=== PATIENT | female | born 1970 | race Caucasian/White ===

== ENCOUNTER 2017-12-22 10:44 | Day surgery (SDC) | payer OTHER ==
[~2017-12-22 10:44] MED LIST: PROPOFOL INJ 200 MG/20 ML VIAL IV ONE
[2017-12-22 13:10] VITALS: BP 112/59
--- NOTE | 2017-12-22 15:46 | Operative Report ---
Operative Report DATE OF SURGERY: 12/22/17 Operative Report: The risks, benefits and alternatives of the procedure including risks of bleeding, perforation requiring surgery are explained to the patient in detail and informed consent is obtained. The patient is brought to the endoscopy suite and placed in the left, lateral decubital position. Timeout was called. Propofol medications administered. A rectal exam was done which did not reveal any masses, tears or fissures. An Olympus videoscope was inserted into the patient's rectum. The scope was then carefully advanced all the way to the cecum. The cecum was identified by the usual anatomical landmarks including the ileocecal valve as well as appendiceal office. Photodocumentation is obtained. Prep is reasonably good. The scope was then sequentially pulled back via the various segments of the colon including the ascending colon, hepatic flexure, transverse colon, splenic flexure, descending colon finding to the rectosigmoid portions of the colon. Retroflexion maneuvers performed. The risks benefits and alternatives of the procedure explained to the patient in detail and informed consent is obtained.A GIF Olympus video scope was inserted into the patient's mouth and hypopharynx, the esophagus is identified intubated and insufflated, the scope was then advanced through the esophagus stomach and duodenum, retroflexion maneuver is done, the esophagus stomach and first and second portions of the duodenum examined PREOPERATIVE DIAGNOSIS: Blood in stool. Change of bowel habits. Epigastric pain rule out peptic ulcer disease POSTOPERATIVE DIAGNOSIS: Lipoma noted in the colon status post biopsy for confirmation. 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 Right side colon biopsy status post biopsy rule out lymphocytic, microscopic, collagenous colitis. Internal hemorrhoids. Gastritis status post biopsy rule out Helicobacter pylori OPERATION: Colonoscopy with biopsy. EGD with biopsy SURGEON: ARIANA MCKEON ANESTHESIA: LMAC TISSUE REMOVED OR ALTERED: As noted above. COMPLICATIONS: None. ESTIMATED BLOOD LOSS: None. INTRAOPERATIVE FINDINGS: As noted above. PROCEDURE: Patient tolerated procedure well. No immediate postprocedure complications are noted. Patient discharged in good condition. Discharge date 12/22/2017. Discharge diet: Regular. Discharge activity: Regular. 2-3 week follow-up to discuss findings. Patient is instructed call the office or proceed to the emergency room should there be any further problems or questions. We will wait and pathology.
== END 2017-12-22 13:10 | disposition home or self-care (01) ==
LOC: END 10:44
PROVIDERS: ATTEND Internal Medicine Gastroenterology
PROC: 0DB68ZX Excision of Stomach, Via Natural or Artificial Opening Endoscopic, Diagnostic (ICD-10-PCS; principal; 2017-12-22 14:00)
PROC: 0DBE8ZX Excision of Large Intestine, Via Natural or Artificial Opening Endoscopic, Diagnostic (ICD-10-PCS; 2017-12-22 14:00)
DX: K63.89 Other specified diseases of intestine (principal); R19.4 Change in bowel habit; R10.13 Epigastric pain; K92.1 Melena; K64.8 Other hemorrhoids; Z79.899 Other long term (current) drug therapy
CPT/HCPCS: 43239; 45380; 88305 ×2; J2704; 813

== ENCOUNTER 2019-05-10 07:32 | Day surgery (SDC) | payer OTHER ==
[2019-05-10 09:13] LABS: INTERNATIONAL RATION (INR) 0.95; PROTHROMBIN TIME 12.6 SEC (11.4-15.4)
[2019-05-10 09:14] LABS: PARTIAL THROMBOPLASTIN TIME 23.6 SEC (23.5-35.8)
[2019-05-10] MEDS ORDERED: PROPOFOL INJ 200 MG/20 ML VIAL IV ONE (10:00)
[2019-05-10] MEDS ORDERED: LIDOCAINE 2% INJ (20 MG/ML) 20 ML MDV ONE (10:01)
--- NOTE | 2019-05-10 10:38 | Operative Report ---
Operative Report DATE OF SURGERY: 05/10/19 Operative Report: The risks, benefits and alternatives of the procedure including the risk of bleeding, perforation requiring surgery have been explained to the patient in detail and informed consent has been obtained. Patient is taken to the operating room and placed in the left, lateral decubital position. Timeout was called. Propofol medication is administered. Rectal examination is done which did not reveal any masses, tears or fissures. An Olympus videoscope was introduced into the patient's rectum. The scope was then carefully advanced all the way to the cecum. The cecum was identified by the usual anatomical landmarks including the ileocecal valve as well as the appendiceal office. Photodocumentation is obtained. The scope was then sequentially pulled back via the various segments of the colon including the ascending colon, hepatic flexure, transverse colon, splenic flexure, descending colon and finally to the rectosigmoid portions of the colon. Retroflexion maneuvers performed. PREOPERATIVE DIAGNOSIS: Previous history of diverticulitis for reevaluation POSTOPERATIVE DIAGNOSIS: Diverticulosis without any evidence of diverticulitis mainly in the sigmoid colon. Melanosis coli. Right side colon Inflammation status post biopsy rule out lymphocytic colitis OPERATION: Colonoscopy with biopsy SURGEON: ARIANA MCKEON ANESTHESIA: LMAC TISSUE REMOVED OR ALTERED: As noted above. COMPLICATIONS: None. ESTIMATED BLOOD LOSS: None. INTRAOPERATIVE FINDINGS: As noted above. PROCEDURE: Patient tolerated the procedure well. No immediate postprocedure complications are noted. Patient is discharged in good condition. Discharge date 05/10/2019. Discharge diet: Regular. Discharge activity: Regular. 2 to 3-week follow-up to discuss findings. Patient is instructed to call the office or proceed to the emergency room should there be any further problems or questions. Wait on the pathology.
[2019-05-10 11:33] VITALS: BP 101/65
== END 2019-05-10 11:30 | disposition home or self-care (01) ==
LOC: OROUT 07:32
PROVIDERS: ATTEND Internal Medicine Gastroenterology
DX: K57.30 Diverticulosis of large intestine without perforation or abscess without bleeding (principal); K63.89 Other specified diseases of intestine; K52.9 Noninfective gastroenteritis and colitis, unspecified; Z09 Encounter for follow-up examination after completed treatment for conditions other than malignant neoplasm; Z87.19 Personal history of other diseases of the digestive system; Z87.11 Personal history of peptic ulcer disease; I10 Essential (primary) hypertension; I25.10 Atherosclerotic heart disease of native coronary artery without angina pectoris; F17.210 Nicotine dependence, cigarettes, uncomplicated; Z79.01 Long term (current) use of anticoagulants
CPT/HCPCS: 45380; 36415; 84132; 85610; 85730; 88305 ×2; J3490; J2704; 811

== ENCOUNTER 2019-12-10 19:19 | Emergency (ER) | payer OTHER, BC ==
--- NOTE | 2019-12-10 19:53 | ER Document Report ---
ED Medical Screen (RME) - General Chief Complaint: Abdominal Pain Stated Complaint: ABDOMINAL PAIN Time Seen by Provider: 12/10/19 19:44 Primary Care Provider: YONATHAN BENAVIDES DO [Primary Care Provider] - Follow up as needed Information source: Patient Notes: Patient presents complaining of abdominal pain that started yesterday. Patient reports nausea and diarrhea. Patient states that she has had pain like this in the past and had a flareup of her diverticulitis. Patient suspects the same today. Patient denies any blood in the stool. Patient does report some difficulty voiding although is able to void. hx: Isanti's, diverticular disease, rectal sphincterotomy, fissure surgery, rectocele, hysterectomy, , appendectomy, aneurysm repair x2 I have greeted and performed a rapid initial assessment of this patient. A comprehensive ED assessment and evaluation of the patient, analysis of test results and completion of the medical decision making process will be conducted by additional ED providers. TRAVEL OUTSIDE OF THE [place] IN LAST 30 DAYS: No - Related Data Allergies/Adverse Reactions: diphenhydramine Adverse Reaction (Intermediate, Verified 05/10/19 07:52) JITTERY, AMS morphine [Morphine] Adverse Reaction (Intermediate, Verified 05/10/19 07:52) VOMITING Past Medical History - Past Medical History Cardiac Medical History: Reports: Hx Hypercholesterolemia, Hx Hypertension Denies: Hx Coronary Artery Disease, Hx Heart Attack Pulmonary Medical History: Reports: Hx COPD - BEGINNING STAGES Denies: Hx Asthma, Hx Bronchitis, Hx Pneumonia Neurological Medical History: Reports: Hx Migraine. Denies: Hx Cerebrovascular Accident, Hx Seizures Musculoskeltal Medical History: Reports Hx Arthritis Psychiatric Medical History: Reports: Hx Depression Past Surgical History: Reports: Hx Appendectomy, Hx Section, Hx Hysterectomy, Hx Tonsillectomy - Immunizations Hx Diphtheria, Pertussis, Tetanus Vaccination: Yes Physical Exam - Vital signs Vitals: Temp Pulse Resp BP Pulse Ox 98.5 F 92 16 124/68 97 12/10/19 19:26 12/10/19 19:26 12/10/19 19:26 12/10/19 19:26 12/10/19 19:26 - Abdominal Tenderness: Tender - Left side abdominal tenderness Course - Vital Signs Vital signs: Temp Pulse Resp BP Pulse Ox 98.5 F 92 16 124/68 97 12/10/19 19:26 12/10/19 19:26 12/10/19 19:26 12/10/19 19:26 12/10/19 19:26 Doctor's Discharge - Discharge Referrals: YONATHAN BENAVIDES, [Primary Care Provider] - Follow up as needed
[2019-12-10 20:21] LABS: ABSOLUTE BASOPHILS # (AUTO) 0.1 10^3/uL (0.0-0.2); ABSOLUTE EOSINOPHILS # (AUTO) 0.1 10^3/uL (0.0-0.6); ABSOLUTE LYMPHOCYTES (AUTO) 3.4 10^3/uL (0.5-4.7); ABSOLUTE MONOCYTES (AUTO) 0.5 10^3/uL (0.1-1.4); ABSOLUTE NEUT (AUTO) 3.7 10^3/uL (1.7-8.2); BASOPHILS % (AUTO) 1.2 % (0-2); EOSINOPHILS % (AUTO) 1.6 % (0-6); HEMATOCRIT 37.4 % (36.0-47.0); HEMOGLOBIN 12.3 g/dL (12.0-15.5); LYMPHOCYTES % (AUTO) 43.4 % (13-45); MEAN CORPUSCULAR HEMOGLOBIN 28.3 pg (27.0-33.4); MEAN CORPUSCULAR HGB CONC 32.9 g/dL (32.0-36.0); MEAN CORPUSCULAR VOLUME 86 fl (80-97); MONOCYTES % (AUTO) 6.6 % (3-13); PLATELET COUNT 321 10^3/uL (150-450); RED BLOOD COUNT 4.35 10^6/uL (3.72-5.28); SEGMENTED NEUTROPHILS % (AUTO) 47.2 % (42-78); TOTAL CELLS COUNTED % (AUTO) 100 %; WHITE BLOOD COUNT 7.9 10^3/uL (4.0-10.5)
[2019-12-10 20:35] LABS: APPEARANCE,URINE CLEAR; BILIRUBIN,URINE NEGATIVE (NEGATIVE); COLOR,URINE YELLOW; GLUCOSE, URINE NEGATIVE (NEGATIVE); KETONES,URINE NEGATIVE (NEGATIVE); LEUKOCYTE ESTERASE,URINE NEGATIVE (NEGATIVE); NITRITE,URINE NEGATIVE (NEGATIVE); PROTEIN,URINE NEGATIVE (NEGATIVE); URINE SPECIFIC GRAVITY 1.011; UROBILINOGEN,URINE NEGATIVE mg/dL (<2.0)
[2019-12-10 20:36] LABS: ALBUMIN 4.2 g/dL (3.5-5.0); ALKALINE PHOSPHATASE 47 U/L (38-126); ANION GAP 8 (5-19); ASPARTATE AMINO TRANSFERASE 24 U/L (14-36); BILIRUBIN,DIRECT 0.2 mg/dL (0.0-0.4); BILIRUBIN,TOTAL 0.2 mg/dL (0.2-1.3); BLOOD UREA NITROGEN 15 mg/dL (7-20); CALCIUM 9.2 mg/dL (8.4-10.2); CARBON DIOXIDE 27 mmol/L (22-30); CHLORIDE 104 mmol/L (98-107); GLUCOSE 132 mg/dL (75-110); POTASSIUM 3.7 mmol/L (3.6-5.0); TOTAL PROTEIN 6.8 g/dL (6.3-8.2)
[2019-12-10] MEDS ORDERED: ONDANSETRON HCL INJ/PF 4 MG/2 ML SDV IV ONE (20:50)
[2019-12-10] MEDS ORDERED: OXYCODONE HCL IR 5 MG TABLET PO ONE (20:51)
--- NOTE | 2019-12-10 20:52 | ER Document Report ---
ED General - General Chief Complaint: Abdominal Pain Stated Complaint: ABDOMINAL PAIN Time Seen by Provider: 12/10/19 19:44 Primary Care Provider: YONATHAN BENAVIDES DO [Primary Care Provider] - Follow up as needed TRAVEL OUTSIDE OF THE [place] IN LAST 30 DAYS: No - HPI Notes: Patient is a 49-year-old female with a history of [place]'s disease and diverticulosis presents complaining of left lower quadrant abdominal pain that is been present for the past 1 to 2 days. Patient states that this feels like another diverticulitis flareup. Patient states that she is being scheduled in [place] for sigmoidectomy at some point in the near future. Patient states that the pain does not radiate. She is able to eat and drink without difficulty otherwise. She is urinating normally and having normal bowel movements. Denies any headache, fever, URI, sore throat, chest pain, palpitations, syncope, cough, shortness of breath, wheeze, dyspnea, nausea/vomiting/diarrhea, urinary ret ention, dysuria, hematuria, loss of control of bowel or bladder, numbness/tingling, saddle anesthesia, muscle paralysis/weakness, or rash. - Related Data Allergies/Adverse Reactions: diphenhydramine Adverse Reaction (Intermediate, Verified 05/10/19 07:52) JITTERY, AMS morphine [Morphine] Adverse Reaction (Intermediate, Verified 05/10/19 07:52) VOMITING Past Medical History - General Information source: Patient - Social History Smoking Status: Current Every Day Smoker Family History: CAD - father of [place] at age 42, Hyperlipidemia, Hypertension Patient has suicidal ideation: No Patient has homicidal ideation: No - Past Medical History Cardiac Medical History: Reports: Hx Hypercholesterolemia, Hx Hypertension Denies: Hx Coronary Artery Disease, Hx Heart Attack Pulmonary Medical History: Reports: Hx COPD - BEGINNING STAGES Denies: Hx Asthma, Hx Bronchitis, Hx Pneumonia Neurological Medical History: Reports: Hx Migraine. Denies: Hx Cerebrovascular Accident, Hx Seizures Musculoskeletal Medical History: Reports Hx Arthritis Psychiatric Medical History: Reports: Hx Depression Past Surgical History: Reports: Hx Appendectomy, Hx Section, Hx Hysterectomy, Hx Orthopedic Surgery - c-spine fusion, Hx Tonsillectomy, Hx Vascular Surgery - x2 brain anureysm stents - Immunizations Hx Diphtheria, Pertussis, Tetanus Vaccination: Yes Review of Systems - Review of Systems -: Yes All other systems reviewed and negative Physical Exam - Vital signs Vitals: Temp Pulse Resp BP Pulse Ox 98.5 F 92 16 124/68 97 12/10/19 19:26 12/10/19 19:26 12/10/19 19:26 12/10/19 19:26 12/10/19 19:26 - Notes Notes: PHYSICAL EXAMINATION: GENERAL: Well-appearing, well-nourished and in no acute distress. HEAD: Atraumatic, normocephalic. EYES: Pupils equal round and reactive to light, extraocular movements intact, sclera anicteric, conjunctiva are normal. ENT: Nares patent and without discharge. oropharynx clear without exudates. No tonsilar hypertrophy or erythema. Moist mucous membranes. NECK: Normal range of motion, supple without lymphadenopathy LUNGS: Breath sounds clear to auscultation bilaterally and equal. No wheezes rales or rhonchi. HEART: Regular rate and rhythm without murmurs, rubs, gallops. ABDOMEN: Soft, nondistended abdomen. No guarding, no rebound. Normal bowel sounds present. No CVA tenderness bilaterally. + tenderness LLQ to palp. Musculoskeletal: FROM to passive/active. Strength 5+/5. Extremities: No cyanosis, clubbing, or edema b/l. Peripheral pulses 2+. Capillary refill less than 3 seconds. NEUROLOGICAL: Normal speech, normal gait. PSYCH: Normal mood, normal affect. SKIN: Warm, Dry, normal turgor, no rashes or lesions noted. Course - Re-evaluation Re-evalutation: 12/10/19 22:47 Patient is an afebrile, well-hydrated, 49-year-old female who presents to the ED with Lt abd pain, nonspecific. Vitals are acceptable without any significant tachycardia, tachypnea, or hypoxia. PE is otherwise unremarkable. Labs are unremarkable. Patient is nontoxic-appearing is tolerating p.o. without any difficulties. CT scan unremarkable for any acute pathology. No other labs or imaging warranted at this time based on H&P. Low suspicion/risk for acute appendicitis, bowel obstruction, acute cholecystitis, acute cholangitis, perforated diverticulitis, incarcerated hernia, pancreatitis, perforated ulcer, peritonitis, sepsis, pelvic inflammatory disease, ectopic , tubo- ovarian abscess, ovarian torsion, or other systemic emergent condition at this time. Patient is aware that her condition can change from initial presentation and she needs to monitor symptoms closely and seek medical attention if any acute changes. Conservative measures otherwise for symptoms. Recheck with your PCM/GI in 3-5 days. Return to the ED with any worsening/concerning symptoms otherwise as reviewed in discharge. Patient is in agreement. - Vital Signs Vital signs: Temp Pulse Resp BP Pulse Ox 98.5 F 92 16 124/68 97 12/10/19 19:26 12/10/19 19:26 12/10/19 19:26 12/10/19 19:26 12/10/19 19:26 - Laboratory Result Diagrams: 12/10/19 20:05 12/10/19 20:05 Laboratory results interpreted by me: 12/10/19 20:05 Glucose 132 H Discharge - Discharge Clinical Impression: Left sided abdominal pain Condition: Stable Disposition: HOME, SELF-CARE Instructions: Abdominal Pain ([facility]) Additional Instructions: Maintain adequate fluid and food intake Zofran as needed tylenol if needed Monitor for any worsening symptoms Make sure you are staying hydrated enough to urinate and have normal BM's Recheck with your PCM in 3-5 days Consider consult with Gastroenterology for ongoing/worsening symptoms Return to the ED with any worsening symptoms and/or development of fever, headache, chest pain, palpitations, syncope, shortness of breath, trouble breathing, abdominal pain, n/v/d, blood in stool/urine, weakness, or other worsening symptoms that are concerning to you. Prescriptions: Ibuprofen [Motrin 800 mg Tablet] 800 mg PO Q8H PRN #15 tab PRN Reason: Metoclopramide HCl [Reglan] 10 mg PO BID PRN #10 tablet PRN Reason: Referrals: ARIANA MCKEON MD [ACTIVE STAFF] - Follow up as needed YONATHAN BENAVIDES DO [Primary Care Provider] - Follow up in 3-5 days
--- NOTE | 2019-12-10 22:44 | RADIOLOGY REPORT (SQ) ---
EXAM DESCRIPTION: CT scan of the abdomen and pelvis with IV contrast CLINICAL HISTORY: 49 years Female; LLQ pain, h/o diverticulitis/losis TECHNIQUE: CT of the abdomen and pelvis with intravenous contrast. All CT scans at this facility use dose modulation, iterative reconstruction, and/or weight based dosing when appropriate to reduce radiation dose to as low as reasonably achievable. This exam was performed according to our department optimization program which includes automated exposure control, adjustment of the mA and/or kv according to patient size and/or use of iterative reconstruction technique. COMPARISON: CT scan of the abdomen and pelvis with IV contrast 07/22/2016 FINDINGS: Lower chest:The lung bases are clear. The visualized portion of heart and great vessels are normal. Abdomen: Liver and biliary tree: Diffuse fatty infiltration of the liver is seen. The gallbladder is contracted. Portal vein and hepatic veins are patent. No biliary dilatation. Pancreas: Normal Spleen:Within normal limits Kidneys: Kidneys are normal in size, shape and position. No stones. No mass or hydronephrosis. Symmetric renal enhancement bilaterally. On delayed images there is symmetric excretion from the kidneys. The ureters are not dilated. Adrenal glands:Within normal limits Vascular structures:Within normal limits Retroperitoneum: No mass or lymphadenopathy Abdominal wall: normal GI: Diverticula are present in the colon predominantly in the sigmoid colon. No focal bowel wall thickening or inflammation is seen. No obstruction. The small bowel is decompressed. Appendix: There appears to been previous appendectomy. General: No free air. No free fluid Pelvis: Lymph nodes: No mass or lymphadenopathy Bladder: Unremarkable. Pelvis: No pelvic mass or adenopathy. Bones: No acute bone findings. IMPRESSION: 1. Fatty infiltration of the liver. 2. Diverticulosis. No evidence of acute diverticulitis or complication of diverticulitis.
[2019-12-10 23:25] VITALS: BP 125/74
== END 2019-12-10 23:25 | disposition home or self-care (01) ==
LOC: ER 19:19
DX: R10.32 Left lower quadrant pain (principal); R10.814 Left lower quadrant abdominal tenderness; I10 Essential (primary) hypertension; J44.9 Chronic obstructive pulmonary disease, unspecified; F17.200 Nicotine dependence, unspecified, uncomplicated; Z90.49 Acquired absence of other specified parts of digestive tract; Z90.710 Acquired absence of both cervix and uterus
CPT/HCPCS: 36415; 83690; 85025; 80053; 81001; 74177; J2405

== ENCOUNTER 2020-06-02 08:43 | Emergency (ER) | payer BC, OTHER ==
[2020-06-02 09:36] LABS: ABSOLUTE EOSINOPHILS # (AUTO) 0.1 10^3/uL (0.0-0.6); ABSOLUTE LYMPHOCYTES (AUTO) 2.8 10^3/uL (0.5-4.7); ABSOLUTE NEUT (AUTO) 6.9 10^3/uL (1.7-8.2); BASOPHILS % (AUTO) 0.4 % (0-2); EOSINOPHILS % (AUTO) 1.1 % (0-6); HEMATOCRIT 36.8 % (36.0-47.0); HEMOGLOBIN 11.9 g/dL (12.0-15.5); LYMPHOCYTES % (AUTO) 25.5 % (13-45); MEAN CORPUSCULAR HEMOGLOBIN 27.6 pg (27.0-33.4); MEAN CORPUSCULAR HGB CONC 32.5 g/dL (32.0-36.0); MEAN CORPUSCULAR VOLUME 85 fl (80-97); MONOCYTES % (AUTO) 9.1 % (3-13); PLATELET COUNT 292 10^3/uL (150-450); RED BLOOD COUNT 4.33 10^6/uL (3.72-5.28); RED CELL DISTRIBUTION WIDTH 15.4 % (11.5-14.0); SEGMENTED NEUTROPHILS % (AUTO) 63.9 % (42-78); TOTAL CELLS COUNTED % (AUTO) 100 %; WHITE BLOOD COUNT 10.8 10^3/uL (4.0-10.5)
[2020-06-02 09:37] LABS: ALBUMIN 3.5 g/dL (3.5-5.0); ALKALINE PHOSPHATASE 42 U/L (38-126); ASPARTATE AMINO TRANSFERASE 18 U/L (14-36); BILIRUBIN,TOTAL 0.3 mg/dL (0.2-1.3); BLOOD UREA NITROGEN 14 mg/dL (7-20); CALCIUM 8.8 mg/dL (8.4-10.2); GLUCOSE 88 mg/dL (75-110); POTASSIUM 3.9 mmol/L (3.6-5.0); TOTAL PROTEIN 5.9 g/dL (6.3-8.2)
[2020-06-02 09:42] LABS: APPEARANCE,URINE CLOUDY; BILIRUBIN,URINE NEGATIVE (NEGATIVE); CARBON DIOXIDE 27 mmol/L (22-30); CHLORIDE 106 mmol/L (98-107); COLOR,URINE YELLOW; GLUCOSE, URINE NEGATIVE (NEGATIVE); KETONES,URINE NEGATIVE (NEGATIVE); LEUKOCYTE ESTERASE,URINE NEGATIVE (NEGATIVE); NITRITE,URINE NEGATIVE (NEGATIVE); PROTEIN,URINE NEGATIVE (NEGATIVE); URINE SPECIFIC GRAVITY 1.017; UROBILINOGEN,URINE NEGATIVE mg/dL (<2.0)
[2020-06-02 09:43] LABS: ANION GAP 5 (5-19)
[2020-06-02] MEDS ORDERED: RINGERS SOLUTION,LACTATED 1,000 ML IV ONE (10:52)
[2020-06-02] MEDS ORDERED: HYDROMORPHONE HCL INJ/PF 2 MG/ML AMPULE IV ONE (10:52)
[2020-06-02] MEDS ORDERED: ONDANSETRON HCL INJ/PF 4 MG/2 ML SDV IV ONE (10:52)
--- NOTE | 2020-06-02 11:01 | ER Document Report ---
ED General - General Chief Complaint: Abdominal Pain Stated Complaint: NAUSEA Time Seen by Provider: 06/02/20 10:13 Primary Care Provider: YONATHAN BENAVIDES DO [Primary Care Provider] - Follow up as needed Notes: 50-year-old female with a history of recurrent sigmoid diverticulitis presents emergency department complaining of acute left lower quadrant abdominal pain starting last evening associate with nausea and vomiting which is nonbloody and nonbilious starting today. Denies any diarrhea, admits sweats and chills, complains of subjective fever as well. States that she is already taking preventative doxycycline. States she is scheduled for a partial colectomy on the . Patient states her pain is worse today than it ever has been in her multiple episodes in the past. TRAVEL OUTSIDE OF THE [place] IN LAST 30 DAYS: No - Related Data Allergies/Adverse Reactions: diphenhydramine Adverse Reaction (Intermediate, Verified 06/02/20 09:39) JITTERY, AMS morphine [Morphine] Adverse Reaction (Intermediate, Verified 06/02/20 09:39) VOMITING hydromorphone [From Dilaudid] Adverse Reaction (Verified 06/02/20 11:22) Past Medical History - General Information source: Patient - Social History Smoking Status: Current Every Day Smoker Frequency of alcohol use: None Drug Abuse: None Family History: CAD - father of [place] at age 42, Hyperlipidemia, Hypertension Patient has homicidal ideation: No - Past Medical History Cardiac Medical History: Reports: Hx Hypercholesterolemia, Hx Hypertension Denies: Hx Coronary Artery Disease, Hx Heart Attack Pulmonary Medical History: Reports: Hx COPD - BEGINNING STAGES Denies: Hx Asthma, Hx Bronchitis, Hx Pneumonia Neurological Medical History: Reports: Hx Migraine. Denies: Hx Cerebrovascular Accident, Hx Seizures Musculoskeletal Medical History: Reports Hx Arthritis Psychiatric Medical History: Reports: Hx Depression Past Surgical History: Reports: Hx Appendectomy, Hx Section, Hx Hysterectomy, Hx Orthopedic Surgery - c-spine fusion, Hx Tonsillectomy, Hx Vascular Surgery - x2 brain aneurysm stents - Immunizations Hx Diphtheria, Pertussis, Tetanus Vaccination: Yes Review of Systems - Review of Systems Constitutional: See HPI, Chills, Diaphoresis, Fever EENT: No symptoms reported Gastrointestinal: See HPI -: Yes All other systems reviewed and negative Physical Exam - Vital signs Vitals: Temp Pulse Resp BP Pulse Ox 98.9 F 90 16 109/68 96 06/02/20 08:59 06/02/20 08:59 06/02/20 08:59 06/02/20 08:59 06/02/20 08:59 Interpretation: Normal - Notes Notes: GENERAL: Alert, interacts well. Appears mildly uncomfortable. HEAD: Normocephalic, atraumatic EYES: Pupils equal, round and reactive to light, extraocular movements intact. ENT: Oral mucosa moist, tongue midline. NECK: Full range of motion, supple, trachea midline. LUNGS: Clear to auscultation bilaterally, no wheezes, rales or rhonchi, no respiratory distress. HEART: Regular rate and rhythm, no murmurs, gallops, rubs. ABDOMEN: Soft, suprapubic and mild left lower quadrant tenderness to palpation, no guarding, no rigidity, no rebounding, nondistended, bowel sounds present in all 4 quadrants. EXTREMITIES: Moves all 4 extremities spontaneously, no edema, radial and dorsalis pedis pulses 2/4 bilaterally. No cyanosis. NEUROLOGICAL: Alert and oriented x3, normal speech. PSYCH: Tearful. SKIN: Warm, Dry, normal turgor, no rashes or lesions noted. Course - Re-evaluation Re-evalutation: 06/02/20 11:01 CBC shows mild leukocytosis at 10.8, mild anemia with hemoglobin 11.9, CMP grossly unremarkable, urinalysis unremarkable. CT scan is pending. 06/02/20 12:49 CBC shows mild leukocytosis of 10.8, hemoglobin slightly low at 11.9 otherwise unremarkable, CMP unremarkable, urinalysis unremarkable. CT scan of the abdomen pelvis shows recurrent sigmoid diverticulitis without perforation or abscess. Abdomen/Pelvis CT 06/02/20 10:51 IMPRESSION: 1. ACUTE SIGMOID DIVERTICULITIS. NO EVIDENCE OF ABSCESS OR PERFORATION. 2. NO OTHER SIGNIFICANT OR ACUTE FINDING IN THE ABDOMEN OR PELVIS ON CT SCAN WITH IV CONTRAST. Patient will be treated with Bactrim and Flagyl as an outpatient. We will continue to follow-up with Dr. Cuevas to schedule versus reschedule surgery as indicated by clinical course. - Vital Signs Vital signs: Temp Pulse Resp BP Pulse Ox 98.9 F 90 16 109/68 96 06/02/20 09:00 06/02/20 08:59 06/02/20 08:59 06/02/20 08:59 06/02/20 08:59 - Laboratory Result Diagrams: 06/02/20 09:05 06/02/20 09:05 Laboratory results interpreted by me: 06/02/20 06/02/20 09:05 09:05 WBC 10.8 H Hgb 11.9 L RDW 15.4 H Total Protein 5.9 L Discharge - Discharge Clinical Impression: Sigmoid diverticulitis Condition: Stable Disposition: HOME, SELF-CARE Additional Instructions: Diverticulitis You have been diagnosed as having diverticulitis. This is an inflammation of a small pouch attached to the colon, called a diverticulum. Many of these small pouches can form on the colon as you get older. They are often caused by constipation. When inflamed or infected, symptoms arise -- usually abdominal pain, constipation or diarrhea, fever, and blood in the stool. Severe diverticulitis may require hospitalization. More mild cases are usually treated with antibiotics and clear liquid diet. As you improve, a diet low in residue (one which forms little stool) is prescribed. When you are better, you should eat a high-fiber diet. Stool softeners (like Metamucil) are usually recommended. Call the doctor or go to the hospital if there is increasing pain, vomiting, high fever, large amounts of blood passed, or if bowel movements cease. I did speak with the surgeon today, because you have no abscess and there is not a hole in your intestine there is no need to have surgery today. It is better for you to have surgery after your infection has resolved. We have started you on Bactrim and Flagyl to treat this. These drugs are less likely to cause side effects than some of the other drugs that can be used. I have prescribed you pain medication and nausea medication as well. The pain medication is a narcotic, please make sure you are using stool softeners such as 1 scoop of MiraLAX mixed in a glass of water once a day to ensure soft bowel movements. Please return for worsening pain, inability to tolerate even a clear liquid diet, fevers or any new or concerning symptoms. Prescriptions: Promethazine HCl [Phenergan 25 mg Tablet] 25 mg PO Q4HP PRN #14 tablet PRN Reason: Ondansetron [Zofran Odt 4 mg Tablet] 4 mg PO Q4HP PRN #20 tab.rapdis PRN Reason: Hydrocodone/Acetaminophen [[place] 5-325 mg Tablet] 1 tab PO Q6HP PRN #14 tablet PRN Reason: Sulfamethoxazole/Trimethoprim [Bactrim Ds Tablet] 1 each PO BID #20 tablet Metronidazole [Flagyl 500 mg Tablet] 500 mg PO TID #40 tablet Referrals: YONATHAN BENAVIDES DO [Primary Care Provider] - Follow up as needed SILVIA CUEVAS MD [ACTIVE STAFF] - Follow up as needed
--- NOTE | 2020-06-02 11:56 | RADIOLOGY REPORT (SQ) ---
EXAM DESCRIPTION: CT ABD/PELVIS WITH IV ONLY IMAGES COMPLETED DATE/TIME: 06/02/2020 11:44 am REASON FOR STUDY: LLQ abd pain, recurrent diverticulitis COMPARISON: 12/10/2019. TECHNIQUE: CT scan of the abdomen and pelvis performed using helical scanning technique with dynamic intravenous contrast injection. No oral contrast. Images reviewed with lung, soft tissue, and bone windows. Reconstructed coronal and sagittal MPR images reviewed. Delayed images for evaluation of the urinary system also acquired. All images stored on PACS. All CT scanners at this facility use dose modulation, iterative reconstruction, and/or weight based d osing when appropriate to reduce radiation dose to as low as reasonably achievable (ALARA). [facility]: Dose Right [facility]: CareDose [facility]: Dose Right [facility]: Teradose 4D [facility]: Lumicell CONTRAST TYPE AND DOSE: contrast/concentration: Isovue 350.00 mmol/ml; Total Contrast Delivered: 88. 0 ml; Total Saline Delivered: 70.0 ml RENAL FUNCTION: BUN 14 creatinine 0.63. RADIATION DOSE: CT Rad equipment meets quality standard of care and radiation dose reduction techniq ues were employed. CTDIvol: 8.5 - 12.0 mGy. DLP: 1108 mGy-cm.. LIMITATIONS: None. FINDINGS: LOWER CHEST: No significant findings. No nodules or infiltrates. LIVER: Normal size. Diffuse fatty infiltration. No masses. No dilated ducts. SPLEEN: Normal size. No focal lesions. PANCREAS: No masses. No significant calcifications. No adjacent inflammation or peripancreatic fluid collections. Pancreatic duct not dilated. GALLBLADDER: No identified stones by CT criteria. No inflammatory changes to suggest cholecystitis. ADRENAL GLANDS: No significant masses or asymmetry. RIGHT KIDNEY AND URETER: No solid masses. No significant calcifications. No hydronephrosis or hyd roureter. LEFT KIDNEY AND URETER: No solid masses. No significant calcifications. No hydronephrosis or hydr oureter. AORTA AND VESSELS: No aneurysm. No dissection. Renal arteries, SMA, celiac without stenosis. RETROPERITONEUM: No retroperitoneal adenopathy, hemorrhage or masses. BOWEL AND PERITONEAL CAVITY: Sigmoid diverticuli. Inflammatory changes in the adjacent soft tissues. No focal fluid collections or extraluminal gas. No free fluid or peritoneal masses. APPENDIX: Surgically absent. PELVIS: No mass. No free fluid. Normal bladder. ABDOMINAL WALL: No masses. No hernias. BONES: No significant or acute findings. OTHER: No other significant finding. IMPRESSION: 1. ACUTE SIGMOID DIVERTICULITIS. NO EVIDENCE OF ABSCESS OR PERFORATION. 2. NO OTHER SIGNIFICANT OR ACUTE FINDING IN THE ABDOMEN OR PELVIS ON CT SCAN WITH IV CONTRAST. TECHNICAL DOCUMENTATION: JOB ID: [id number] Quality ID # [id number]: Final reports with documentation of one or more dose reduction techniques (e.g., Au tomated exposure control, adjustment of the mA and/or kV according to patient size, use of iterative reconstruction technique) 2010 [employer]- All Rights Reserved Reading location - IP/workstation name: [email or web address]
[2020-06-02] MEDS ORDERED: FENTANYL CITRATE INJ/PF 100 MCG/2 ML AMPUL IV ONE (12:36)
[2020-06-02] MEDS ORDERED: SULFAMETHOXAZOLE/TRIMETHOPRIM 800-160 MG TABLET PO ONE (12:49)
[2020-06-02] MEDS ORDERED: METRONIDAZOLE 500 MG TABLET PO ONE (12:49)
[2020-06-02 13:44] VITALS: BP 120/76
== END 2020-06-02 13:48 | disposition home or self-care (01) ==
LOC: ER 08:43
DX: K57.32 Diverticulitis of large intestine without perforation or abscess without bleeding (principal); R10.32 Left lower quadrant pain; R10.814 Left lower quadrant abdominal tenderness; D64.9 Anemia, unspecified; D72.829 Elevated white blood cell count, unspecified; R11.2 Nausea with vomiting, unspecified; R50.9 Fever, unspecified; I10 Essential (primary) hypertension; J44.9 Chronic obstructive pulmonary disease, unspecified; Z79.2 Long term (current) use of antibiotics; F17.200 Nicotine dependence, unspecified, uncomplicated
CPT/HCPCS: 99284; 96361; 96374; 96375; 36415; 85025; 80053; 81001; 74177; J3010; J2405; J7120

== ENCOUNTER 2020-06-18 06:02 | Inpatient (IN) | payer BC, OTHER ==
--- NOTE | 2020-06-14 11:26 | RADIOLOGY REPORT (SQ) ---
EXAM DESCRIPTION: CHEST PA/LATERAL IMAGES COMPLETED DATE/TIME: 06/14/2020 11:14 am REASON FOR STUDY: PRE-OP COMPARISON: 05/20/2015 EXAM PARAMETERS: NUMBER OF VIEWS: two views TECHNIQUE: Digital Frontal and Lateral radiographic views of the chest acquired. RADIATION DOSE: NA LIMITATIONS: none FINDINGS: LUNGS AND PLEURA: No opacities, masses or pneumothorax. No pleural effusion. MEDIASTINUM AND HILAR STRUCTURES: No masses or contour abnormalities. HEART AND VASCULAR STRUCTURES: Heart normal size. No evidence for failure. BONES: No acute findings. HARDWARE: None in the chest. OTHER: No other significant finding. IMPRESSION: NO SIGNIFICANT RADIOGRAPHIC FINDING IN THE CHEST. TECHNICAL DOCUMENTATION: JOB ID: [id number] 2010 [employer]- All Rights Reserved Reading location - IP/workstation name: [email or web address]
[2020-06-14 12:13] LABS: HEMATOCRIT 39.8 % (36.0-47.0); HEMOGLOBIN 13.1 g/dL (12.0-15.5); MEAN CORPUSCULAR HEMOGLOBIN 27.5 pg (27.0-33.4); MEAN CORPUSCULAR HGB CONC 32.9 g/dL (32.0-36.0); MEAN CORPUSCULAR VOLUME 84 fl (80-97); PLATELET COUNT 419 10^3/uL (150-450); RED BLOOD COUNT 4.76 10^6/uL (3.72-5.28); RED CELL DISTRIBUTION WIDTH 15.5 % (11.5-14.0); WHITE BLOOD COUNT 10.9 10^3/uL (4.0-10.5)
[2020-06-14 12:34] LABS: ANION GAP 8 (5-19); BLOOD UREA NITROGEN 16 mg/dL (7-20); CALCIUM 9.9 mg/dL (8.4-10.2); CARBON DIOXIDE 25 mmol/L (22-30); CHLORIDE 105 mmol/L (98-107); GLUCOSE 81 mg/dL (75-110); POTASSIUM 4.5 mmol/L (3.6-5.0)
--- NOTE | 2020-06-14 16:32 | EKG REPORT ---
SEVERITY:- BORDERLINE ECG - SINUS RHYTHM PROBABLE LEFT ATRIAL ABNORMALITY : Confirmed by: Ronny Hickman MD 14-Jun-2020 16:30:52
[~2020-06-18 06:02] MED LIST changes: +ACETAMINOPHEN 1,000 MG/100 ML RTUPB IV PRN; +CEFOXITIN SODIUM 2 GM in DEXTROSE 5%-WATER 100 ML IV PRN; +IBUPROFEN 800 MG in NORMAL SALINE 250 ML IV PRN; -PROPOFOL INJ 200 MG/20 ML VIAL IV ONE
[2020-06-18 07:11] LABS: INTERNATIONAL RATION (INR) 0.95; PROTHROMBIN TIME 12.9 SEC (11.4-15.4)
[2020-06-18 07:12] LABS: PARTIAL THROMBOPLASTIN TIME 24.2 SEC (23.5-35.8)
[2020-06-18] MEDS ORDERED: ACETAMINOPHEN 1,000 MG/100 ML RTUPB IV ONE (07:26)
[2020-06-18] MEDS ORDERED: METHYLPREDNISOLONE INJ 125 MG/2 ML SDV ONE ×2 (07:38→10:55)
[2020-06-18] MEDS ORDERED: MIDAZOLAM 2 MG/2 ML INJ ONE (07:39)
[2020-06-18] MEDS ORDERED: PROPOFOL INJ 200 MG/20 ML VIAL IV ONE (07:39)
[2020-06-18] MEDS ORDERED: HYDROMORPHONE HCL INJ/PF 2 MG/ML AMPULE ONE (07:39)
[2020-06-18] MEDS ORDERED: EPHEDRINE SULFATE INJ 50 MG/1 ML AMPULE ONE (07:39)
[2020-06-18] MEDS ORDERED: FENTANYL CITRATE INJ/PF 100 MCG/2 ML AMPUL ONE ×2 (07:39→12:54)
[2020-06-18] MEDS ORDERED: ONDANSETRON HCL INJ/PF 4 MG/2 ML SDV ONE ×2 (07:39→12:42)
[2020-06-18] MEDS ORDERED: BUPIVACAINE HCL 0.25 % INJ/PF (2.5 MG/1 ML) 30 ML VIAL ONE (07:42)
[2020-06-18] MEDS ORDERED: ONDANSETRON HCL INJ/PF 4 MG/2 ML SDV IV PRN (09:10)
[2020-06-18] MEDS ORDERED: MEPERIDINE HCL/PF INJ 25 MG/1 ML DISP.SYRIN IV PRN (09:10)
[2020-06-18] MEDS ORDERED: FENTANYL CITRATE INJ/PF 100 MCG/2 ML AMPUL IV PRN ×3 (09:10)
[2020-06-18] MEDS ORDERED: SUCCINYLCHOLINE CHLORIDE INJ 200 MG/10 ML VIAL ONE (10:55)
[2020-06-18] MEDS ORDERED: VECURONIUM BROMIDE INJ 10 MG VIAL IV ONE (10:55)
[2020-06-18] MEDS ORDERED: GLYCOPYRROLATE 1 MG/5 ML VIAL ONE (10:55)
[2020-06-18] MEDS ORDERED: NORMAL SALINE INJ/PF 0.9% 10 ML SDV ONE (10:55)
[2020-06-18] MEDS ORDERED: MORPHINE SULFATE 10 MG/ML INJ IV PRN (11:56)
[2020-06-18] MEDS ORDERED: HYDROMORPHONE HCL INJ/PF 2 MG/ML AMPULE IV PRN (12:16)
[2020-06-18] MEDS ORDERED: PROMETHAZINE HCL INJ 25 MG/1 ML VIAL ONE (12:54)
[2020-06-18] MEDS: KETOROLAC TROMETHAMINE INJ/PF 30 MG/1 ML SDV IV SCH ×2 (14:43→22:07)
[2020-06-18] MEDS: HYDROCORTISONE SOD SUCCINATE INJ/PF 100 MG/2 ML SDV IV SCH ×2 (14:43→22:07)
[2020-06-18] MEDS ORDERED: CEFOXITIN SODIUM 2 GM in DEXTROSE 5%-WATER 100 ML IV SCH (16:00)
[2020-06-18] MEDS: HYDROCODONE/ACETAMINOPHEN 10-325 MG TABLET PO PRN (17:27)
[2020-06-18] MEDS: ONDANSETRON HCL INJ/PF 4 MG/2 ML SDV IV PRN (17:28)
[2020-06-18] MEDS: DEXTROSE 5%-LACTATED RINGERS 1,000 ML IV PRN (17:39)
[2020-06-18] MEDS: CEFOXITIN SODIUM 2 GM in DEXTROSE 5%-WATER 100 ML IV SCH (17:39)
[2020-06-18] MEDS ORDERED: ROPINIROLE HCL 0.25 MG TABLET PO SCH (22:00)
[2020-06-18] MEDS: TEMAZEPAM 7.5 MG CAPSULE PO SCH (22:07)
[2020-06-18] MEDS: FAMOTIDINE INJ/PF 20 MG/2 ML SDV IV SCH (22:07)
[2020-06-18] MEDS: ROPINIROLE HCL 1 MG TABLET PO SCH (22:08)
[2020-06-18] MEDS: METHOCARBAMOL 500 MG TABLET PO SCH (22:08)
[2020-06-19] MEDS: HYDROCODONE/ACETAMINOPHEN 10-325 MG TABLET PO PRN ×4 (03:59→21:51)
[2020-06-19] MEDS: CEFOXITIN SODIUM 2 GM in DEXTROSE 5%-WATER 100 ML IV SCH ×3 (04:00→21:45)
[2020-06-19] MEDS: ONDANSETRON HCL INJ/PF 4 MG/2 ML SDV IV PRN (04:06)
[2020-06-19] MEDS: DEXTROSE 5%-LACTATED RINGERS 1,000 ML IV PRN ×2 (04:06→13:59)
[2020-06-19 05:15] LABS: ABSOLUTE LYMPHOCYTES (AUTO) 1.3 10^3/uL (0.5-4.7); ABSOLUTE MONOCYTES (AUTO) 1.1 10^3/uL (0.1-1.4); ABSOLUTE NEUT (AUTO) 13.2 10^3/uL (1.7-8.2); BASOPHILS % (AUTO) 0.2 % (0-2); HEMATOCRIT 32.5 % (36.0-47.0); HEMOGLOBIN 10.9 g/dL (12.0-15.5); MEAN CORPUSCULAR HEMOGLOBIN 27.8 pg (27.0-33.4); MEAN CORPUSCULAR HGB CONC 33.5 g/dL (32.0-36.0); MEAN CORPUSCULAR VOLUME 83 fl (80-97); MONOCYTES % (AUTO) 7.1 % (3-13); PLATELET COUNT 296 10^3/uL (150-450); RED BLOOD COUNT 3.92 10^6/uL (3.72-5.28); RED CELL DISTRIBUTION WIDTH 15.6 % (11.5-14.0); SEGMENTED NEUTROPHILS % (AUTO) 84.7 % (42-78); TOTAL CELLS COUNTED % (AUTO) 100 %; WHITE BLOOD COUNT 15.6 10^3/uL (4.0-10.5)
[2020-06-19 05:35] LABS: BLOOD UREA NITROGEN 9 mg/dL (7-20); CALCIUM 8.7 mg/dL (8.4-10.2); CARBON DIOXIDE 26 mmol/L (22-30); GLUCOSE 141 mg/dL (75-110); POTASSIUM 3.7 mmol/L (3.6-5.0)
[2020-06-19 05:40] LABS: ANION GAP 5 (5-19); CHLORIDE 109 mmol/L (98-107)
[2020-06-19] MEDS: HYDROCORTISONE SOD SUCCINATE INJ/PF 100 MG/2 ML SDV IV SCH ×3 (06:16→21:44)
[2020-06-19] MEDS: KETOROLAC TROMETHAMINE INJ/PF 30 MG/1 ML SDV IV SCH ×3 (06:16→21:44)
--- NOTE | 2020-06-19 09:06 | PDOC PROGRESS REPORT ---
Subjective Progress Note for:: 06/19/20 Reason For Visit: S/P SIGMOID COLECTOMY FOR DIVERTICULITIS Physical Exam Vital Signs: Temp Pulse Resp BP Pulse Ox 98.2 F 96 16 96/50 L 93 06/18/20 23:46 06/18/20 23:46 06/18/20 23:46 06/18/20 23:46 06/18/20 23:46 Intake & Output 06/18/20 06/19/20 06/20/20 06:59 06:59 06:59 Intake Total 0 3875 Output Total 3365 Balance 0 510 Weight 77.11 kg 76.2 kg Results Laboratory Results: 06/19/20 05:06 06/19/20 05:06 06/19/20 06/19/20 05:06 05:06 WBC 15.6 H RBC 3.92 Hgb 10.9 L Hct 32.5 L MCV 83 MCH 27.8 MCHC 33.5 RDW 15.6 H Plt Count 296 Seg Neutrophils % 84.7 H Sodium 140.2 Potassium 3.7 Chloride 109 H Carbon Dioxide 26 Anion Gap 5 BUN 9 Creatinine 0.53 Est GFR ( Amer) > 60 Glucose 141 H Calcium 8.7 Impressions: Chest X-Ray 06/14/20 00:00 IMPRESSION: NO SIGNIFICANT RADIOGRAPHIC FINDING IN THE CHEST. Assessment & Plan - Diagnosis (1) History of diverticulitis of colon Is this a current diagnosis for this admission?: Yes - Time Anticipated Discharge Disposition: Home with Home Health Anticipated Discharge Timeframe: within 48 hours - Plan Summary Plan Summary: This is a 50-year-old female with a history of recurrent episodes of diverticulitis. Yesterday, she underwent robot-assisted sigmoid colectomy with diverting ileostomy (due to her dependence on steroids). Her ileostomy is productive. She is tolerating liquids. I will advance her diet today. She should get out of bed. I will order her an incentive spirometer and an abdominal binder. Social work to arrange for home health (ileostomy teaching and supplies). Discontinue Monroy catheter. Discontinue IV fluids.
[2020-06-19] MEDS: ESTROGENS,CONJUGATED 0.625 MG TABLET PO SCH (09:17)
[2020-06-19] MEDS: VENLAFAXINE HCL 75 MG CAP.SR.24H PO SCH (09:17)
[2020-06-19] MEDS: ENOXAPARIN SODIUM INJ 40 MG/0.4 ML DISP.SYRIN SUBCUT SCH (09:18)
[2020-06-19] MEDS: FAMOTIDINE INJ/PF 20 MG/2 ML SDV IV SCH ×2 (09:18→21:45)
[2020-06-19] MEDS: TEMAZEPAM 7.5 MG CAPSULE PO SCH (21:45)
[2020-06-19] MEDS: ROPINIROLE HCL 1 MG TABLET PO SCH (21:45)
[2020-06-19] MEDS: METHOCARBAMOL 500 MG TABLET PO SCH (21:46)
[2020-06-20 05:32] LABS: ABSOLUTE LYMPHOCYTES (AUTO) 2.1 10^3/uL (0.5-4.7); ABSOLUTE MONOCYTES (AUTO) 0.8 10^3/uL (0.1-1.4); ABSOLUTE NEUT (AUTO) 10.1 10^3/uL (1.7-8.2); BASOPHILS % (AUTO) 0.3 % (0-2); HEMATOCRIT 30.7 % (36.0-47.0); HEMOGLOBIN 10.1 g/dL (12.0-15.5); MEAN CORPUSCULAR HEMOGLOBIN 27.7 pg (27.0-33.4); MEAN CORPUSCULAR HGB CONC 32.9 g/dL (32.0-36.0); MEAN CORPUSCULAR VOLUME 84 fl (80-97); MONOCYTES % (AUTO) 6.3 % (3-13); PLATELET COUNT 266 10^3/uL (150-450); RED BLOOD COUNT 3.64 10^6/uL (3.72-5.28); RED CELL DISTRIBUTION WIDTH 15.7 % (11.5-14.0); SEGMENTED NEUTROPHILS % (AUTO) 77.4 % (42-78); TOTAL CELLS COUNTED % (AUTO) 100 %
[2020-06-20] MEDS: DEXTROSE 5%-LACTATED RINGERS 1,000 ML IV PRN (05:36)
[2020-06-20] MEDS: KETOROLAC TROMETHAMINE INJ/PF 30 MG/1 ML SDV IV SCH ×3 (05:37→21:21)
[2020-06-20] MEDS: HYDROCORTISONE SOD SUCCINATE INJ/PF 100 MG/2 ML SDV IV SCH (05:37)
[2020-06-20] MEDS: CEFOXITIN SODIUM 2 GM in DEXTROSE 5%-WATER 100 ML IV SCH ×3 (05:37→21:14)
[2020-06-20] MEDS ORDERED: (PENDING PHARMACY ID) (Cholecalciferol (Vitamin D3) [Vitamin D3] 50,000 UNIT) PO SCH (05:45)
[2020-06-20 05:54] LABS: BLOOD UREA NITROGEN 11 mg/dL (7-20); CALCIUM 8.7 mg/dL (8.4-10.2); CARBON DIOXIDE 28 mmol/L (22-30); CHLORIDE 111 mmol/L (98-107); GLUCOSE 111 mg/dL (75-110); POTASSIUM 4.1 mmol/L (3.6-5.0)
[2020-06-20 06:01] LABS: ANION GAP 4 (5-19)
--- NOTE | 2020-06-20 06:39 | PDOC PROGRESS REPORT ---
Subjective Progress Note for:: 06/20/20 Reason For Visit: S/P SIGMOID COLECTOMY FOR DIVERTICULITIS Physical Exam Vital Signs: Temp Pulse Resp BP Pulse Ox 98.2 F 85 17 116/57 L 93 06/19/20 23:19 06/19/20 23:19 06/19/20 23:19 06/19/20 23:19 06/19/20 23:19 Intake & Output 06/18/20 06/19/20 06/20/20 06:59 06:59 06:59 Intake Total 0 3875 2703 Output Total 3365 1050 Balance 0 510 1653 Weight 77.11 kg 76.2 kg 76.8 kg Results Laboratory Results: 06/20/20 05:18 06/20/20 05:18 06/20/20 06/20/20 05:18 05:18 WBC 13.0 H RBC 3.64 L Hgb 10.1 L Hct 30.7 L MCV 84 MCH 27.7 MCHC 32.9 RDW 15.7 H Plt Count 266 Seg Neutrophils % 77.4 Sodium 142.8 Potassium 4.1 Chloride 111 H Carbon Dioxide 28 Anion Gap 4 L BUN 11 Creatinine 0.55 Est GFR ( Amer) > 60 Glucose 111 H Calcium 8.7 Impressions: Chest X-Ray 06/14/20 00:00 IMPRESSION: NO SIGNIFICANT RADIOGRAPHIC FINDING IN THE CHEST. Assessment & Plan - Diagnosis (1) History of diverticulitis of colon Is this a current diagnosis for this admission?: Yes - Time Anticipated Discharge Disposition: Home with Home Health Anticipated Discharge Timeframe: within 24 hours - Plan Summary Plan Summary: This is a 50-year-old female with a history of recurrent episodes of diverticulitis. She is POD 2 from robot-assisted sigmoid colectomy with diverting ileostomy (due to her dependence on steroids). Her ileostomy is productive. She is tolerating a regular diet. Change to ambulate in the hallways. Continue with aggressive pulmonary toilet. Social work to arrange for home health (ileostomy teaching and supplies). Discontinue IV fluids, IV medication. Restart all remaining home medications (including home steroids). Start Lomotil. Patient will likely be ready for discharge tomorrow.
[2020-06-20] MEDS: VENLAFAXINE HCL 75 MG CAP.SR.24H PO SCH (09:43)
[2020-06-20] MEDS: LISINOPRIL 10 MG TABLET PO SCH (09:44)
[2020-06-20] MEDS: CETIRIZINE 10 MG TABLET PO SCH (09:44)
[2020-06-20] MEDS: HYDROCORTISONE 10 MG TABLET PO SCH ×2 (09:44→19:01)
[2020-06-20] MEDS: HYDROCHLOROTHIAZIDE 12.5 MG TABLET PO SCH (09:44)
[2020-06-20] MEDS: PANTOPRAZOLE SODIUM 40 MG TABLET.DR PO SCH (09:44)
[2020-06-20] MEDS: DIPHENOXYLATE HCL/ATROP SULF 2.5-0.025 MG TABLET PO SCH ×2 (09:45→19:01)
[2020-06-20] MEDS: POTASSIUM CHLORIDE 10 MEQ TABLET.ER PO SCH (09:45)
[2020-06-20] MEDS: ENOXAPARIN SODIUM INJ 40 MG/0.4 ML DISP.SYRIN SUBCUT SCH (09:45)
[2020-06-20] MEDS: ESTROGENS,CONJUGATED 0.625 MG TABLET PO SCH (09:45)
[2020-06-20] MEDS ORDERED: (PENDING PHARMACY ID) (Lisinopril/Hydrochlorothiazide [Lisinopril-Hctz 10-12.5 Mg Tab] 1 E PO SCH (10:00)
[2020-06-20] MEDS: HYDROCODONE/ACETAMINOPHEN 10-325 MG TABLET PO PRN ×2 (12:58→19:01)
[2020-06-20] MEDS ORDERED: ONDANSETRON HCL INJ/PF 4 MG/2 ML SDV IV PRN (13:00)
[2020-06-20] MEDS: TEMAZEPAM 7.5 MG CAPSULE PO SCH (21:21)
[2020-06-20] MEDS: ROPINIROLE HCL 1 MG TABLET PO SCH (21:22)
[2020-06-20] MEDS: METHOCARBAMOL 500 MG TABLET PO SCH (21:22)
[2020-06-20] MEDS ORDERED: ATORVASTATIN CALCIUM 10 MG TABLET PO SCH (22:00)
[2020-06-20] MEDS ORDERED: FENOFIBRATE NANOCRYSTALLIZED 145 MG TABLET PO SCH (22:00)
[2020-06-21] MEDS: KETOROLAC TROMETHAMINE INJ/PF 30 MG/1 ML SDV IV SCH ×2 (05:37→15:45)
[2020-06-21] MEDS: CEFOXITIN SODIUM 2 GM in DEXTROSE 5%-WATER 100 ML IV SCH ×2 (05:38→15:46)
[2020-06-21] MEDS: HYDROCHLOROTHIAZIDE 12.5 MG TABLET PO SCH (11:29)
[2020-06-21] MEDS: DIPHENOXYLATE HCL/ATROP SULF 2.5-0.025 MG TABLET PO SCH ×2 (11:29→18:07)
[2020-06-21] MEDS: VENLAFAXINE HCL 75 MG CAP.SR.24H PO SCH (11:29)
[2020-06-21] MEDS: CETIRIZINE 10 MG TABLET PO SCH (11:29)
[2020-06-21] MEDS: LISINOPRIL 10 MG TABLET PO SCH (11:30)
[2020-06-21] MEDS: POTASSIUM CHLORIDE 10 MEQ TABLET.ER PO SCH (11:30)
[2020-06-21] MEDS: PANTOPRAZOLE SODIUM 40 MG TABLET.DR PO SCH (11:30)
[2020-06-21] MEDS: ENOXAPARIN SODIUM INJ 40 MG/0.4 ML DISP.SYRIN SUBCUT SCH (11:31)
[2020-06-21] MEDS: HYDROCORTISONE 10 MG TABLET PO SCH ×2 (11:44→18:07)
[2020-06-21] MEDS: ESTROGENS,CONJUGATED 0.625 MG TABLET PO SCH (11:44)
--- NOTE | 2020-06-21 13:42 | PDOC DISCHARGE SUMMARY ---
General - Admit/Disc Date/PCP Admission Date/Primary Care Provider: 06/18/20 06:02 YONATHAN BENAVIDES DO Discharge Date: 06/21/20 - Discharge Diagnosis Final Diagnosis: recurrent sigmoid diverticulitis - Assessment Summary: This is a 50-year-old female with recurrent diverticulitis. She was admitted for elective sigmoid colon resection, to prevent any further episodes of diverticulitis. 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 Secondary to this, the patient was taken the operating room for laparoscopic sigmoid colon resection with diverting ileostomy. The patient did well from the procedure. She was taken to the floor in stable condition. Postoperative day #1, her ileostomy began functioning. She was placed on a regular diet. She was subsequently started on Lomotil, to prevent dehydration. By 06/21/2020, the patient was ambulating, tolerating a diet, she was taking oral pain medications, she was comfortable changing her ileostomy appliance, and it was felt that she had reached maximal hospital benefit and was fit for discharge. - Additional Information Resuscitation Status: Full Code Discharge Diet: As Tolerated Discharge Activity: Balance Activity w/Rest, No Lifting Over 10 Pounds, No Lifting/Push/Pulling Referrals: YONATHAN BENAVIDES DO [Primary Care Provider] - Prescriptions: Diphenoxylate HCl/Atrop Sulf [Lomotil 2.5 mg Tablet] 2 tab PO BID #120 tablet Hydrocodone/Acetaminophen [Mico 10-325 mg Tablet] 1 tab PO Q4HP PRN #30 tablet PRN Reason: For Pain Home Medications: Estrogens,Conjugated [Premarin 0.625 mg Tablet] 0.625 mg PO DAILY 08/10/12 Lisinopril/Hydrochlorothiazide [Lisinopril-Hctz 10-12.5 mg Tab] 1 each PO DAILY 08/10/12 Venlafaxine HCl [Effexor Xr] 150 mg PO DAILY 08/10/12 Atorvastatin Calcium [Lipitor 40 mg Tablet] 10 mg PO QHS 12/20/17 Cetirizine HCl [Zyrtec] 10 mg PO DAILY 12/20/17 Methocarbamol [Robaxin 500 mg Tablet] 500 mg PO QHS 12/20/17 Ropinirole HCl [Requip] 1 mg PO QHS 12/20/17 Temazepam [Restoril] 7.5 mg PO QHS 12/20/17 Cholecalciferol (Vitamin D3) [Vitamin D3] 50,000 unit PO .QMOMDAY 12/22/17 Fenofibrate Nanocrystallized [Tricor 145 mg Tablet] 145 mg PO QHS 12/22/17 Hydrocortisone [Cortef] 10 mg PO HSP PRN 05/09/19 Hydrocortisone [Cortef] 20 mg PO DAILY 05/09/19 Potassium Chloride 10 meq PO DAILY 05/09/19 Ondansetron [Zofran Odt 4 mg Tablet] 4 mg PO Q4HP PRN #20 tab.rapdis 06/02/20 Promethazine HCl [Phenergan 25 mg Tablet] 25 mg PO Q4HP PRN #14 tablet 06/02/20 Pantoprazole Sodium [Protonix [address] Tablet] 40 mg PO QAM 06/18/20 Diphenoxylate HCl/Atrop Sulf [Lomotil 2.5 mg Tablet] 2 tab PO BID #120 tablet 06/21/20 Diphenoxylate HCl/Atropine [Lomotil Tablet] 2 each PO BID #120 tablet 06/21/20 Hydrocodone/Acetaminophen [Mico 10-325 mg Tablet] 1 tab PO Q4HP PRN #30 tablet 06/21/20 Additional Information: Discharge home. Diet as tolerated. Activity: Nonstrenuous. No lifting greater than 10 pounds. Follow-up with [facility] in 7 to 10 days. Okay to shower. No tub baths or swimming pools. Home health for colostomy changes. Mico 10/325 mg p.o. every 6 hours as needed for pain. Ibuprofen ([id number]) p.o. as needed for breakthrough pain. History of Present Illiness History of Present Illness: SUNDAR HUBBARD is a 50 year old female Physical Exam Vital Signs: Temp Pulse Resp BP Pulse Ox 97.9 F 86 16 106/60 94 06/21/20 00:42 06/21/20 00:42 06/21/20 00:42 06/21/20 00:42 06/21/20 00:42 Intake & Output 06/20/20 06/21/20 06/22/20 06:59 06:59 06:59 Intake Total 2703 1720 Output Total 1050 200 Balance 1653 1520 Weight 76.8 kg 76.8 kg Results Laboratory Results: WBC 13.0 10^3/uL (4.0-10.5) H 06/20/20 05:18 RBC 3.64 10^6/uL (3.72-5.28) L 06/20/20 05:18 Hgb 10.1 g/dL (12.0-15.5) L 06/20/20 05:18 Hct 30.7 % (36.0-47.0) L 06/20/20 05:18 MCV 84 fl (80-97) 06/20/20 05:18 MCH 27.7 pg (27.0-33.4) 06/20/20 05:18 MCHC 32.9 g/dL (32.0-36.0) 06/20/20 05:18 RDW 15.7 % (11.5-14.0) H 06/20/20 05:18 Plt Count 266 10^3/uL (150-450) 06/20/20 05:18 Lymph % (Auto) 16.0 % (13-45) 06/20/20 05:18 [place] % (Auto) 6.3 % (3-13) 06/20/20 05:18 Eos % (Auto) 0.0 % (0-6) 06/20/20 05:18 Baso % (Auto) 0.3 % (0-2) 06/20/20 05:18 Absolute Neuts (auto) 10.1 10^3/uL (1.7-8.2) H 06/20/20 05:18 Absolute Lymphs (auto) 2.1 10^3/uL (0.5-4.7) 06/20/20 05:18 Absolute Monos (auto) 0.8 10^3/uL (0.1-1.4) 06/20/20 05:18 Absolute Eos (auto) 0.0 10^3/uL (0.0-0.6) 06/20/20 05:18 Absolute Basos (auto) 0.0 10^3/uL (0.0-0.2) 06/20/20 05:18 Seg Neutrophils % 77.4 % (42-78) 06/20/20 05:18 PT 12.9 SEC (11.4-15.4) 06/18/20 06:53 INR 0.95 08/18/20 06:53 APTT 24.2 SEC (23.5-35.8) 06/18/20 06:53 Sodium 142.8 mmol/L (137-145) 06/20/20 05:18 Potassium 4.1 mmol/L (3.6-5.0) 06/20/20 05:18 Chloride 111 mmol/L (98-107) H 06/20/20 05:18 Carbon Dioxide 28 mmol/L (22-30) 06/20/20 05:18 Anion Gap 4 (5-19) L 06/20/20 05:18 BUN 11 mg/dL (7-20) 06/20/20 05:18 Creatinine 0.55 mg/dL (0.52-1.25) 06/20/20 05:18 Est GFR ( Amer) > 60 (>60) 06/20/20 05:18 Est GFR (MDRD) Non-Af > 60 (>60) 06/20/20 05:18 Glucose 111 mg/dL (75-110) H 06/20/20 05:18 Calcium 8.7 mg/dL (8.4-10.2) 06/20/20 05:18 COVID-19 Source NASOPHARYNGEAL 06/14/20 10:30 COVID-19 (STEPHANIE) NOT DETECTED 06/14/20 10:30 Blood Type A POSITIVE 06/18/20 06:53 Antibody Screen NEGATIVE 06/18/20 06:53 Impressions: Chest X-Ray 06/14/20 00:00 IMPRESSION: NO SIGNIFICANT RADIOGRAPHIC FINDING IN THE CHEST.
[2020-06-21] MEDS: HYDROCODONE/ACETAMINOPHEN 10-325 MG TABLET PO PRN (18:11)
[2020-06-21 18:53] VITALS: BP 120/59
[2020-06-24] MEDS ORDERED: ERGOCALCIFEROL (VITAMIN D2) 50000 UNIT (1.25 MG) CAPSULE PO SCH (10:00)
--- NOTE | 2020-06-26 10:37 | Operative Report ---
Nonrecallable Operative Report DATE OF SURGERY: 06/18/20 PREOPERATIVE DIAGNOSIS: Recurrent, severe diverticulitis POSTOPERATIVE DIAGNOSIS: Same as above OPERATION: Robot-assisted laparoscopic sigmoid colectomy with stapled EEA colorectal anastomosis and diverting ileostomy SURGEON: SILVIA KULKARNI [employer] SAL[employer] MANAGER: CAROLE VASQUEZ ANESTHESIA: GA TISSUE REMOVED OR ALTERED: Sigmoid colon COMPLICATIONS: None apparent ESTIMATED BLOOD LOSS: Minimal PROCEDURE: Drains/implants: 18 Burmese Monroy catheter used as a buttress for the ileostomy. Procedure in detail: After informed consent was obtained, the patient was brought into the operating room and laid in the lithotomy position. The area of the abdomen was prepped and draped in a normal sterile fashion. An incision was created to the right of the umbilicus, and slightly superior to it. Dissection was carried through the subcutaneous tissues using sharp and blunt dissection. The anterior sheath was incised sharply, the rectus muscle was spread, and the posterior sheath was incised. The balloon trocar was inserted, and pneumoperi toneum was achieved. A 12 mm right lower quadrant robotic trocar was placed, as well as 2 left-sided 8 mm robotic trochars. A 5 mm standard trocar was placed in the right upper quadrant. All this was done under direct laparoscopic visualization. Next, the robot was brought over the patient and docked appropriately. I then assumed my position at the surgeon's console. Attention was turned to freeing of the sigmoid colon. There were adhesions of the sigmoid colon to the left sidewall. These were lysed sharply. The colon was then rotated medially. The ureter was identified along its course, and spared from any injury. The white line of Toldt was mobilized on the left. This was performed up to, but not involving, the splenic flexure. Next, the mesentery of the sigmoid colon was divided immediately adjacent to the colonic wall. This was done using the robotic vessel sealing device. Once the affected/inflamed sigmoid colon was completely freed from the mesentery, the proximal rectum was divided using the device. The descending colon was divided using the robotic stapler. An attempt was made at natural orifice extraction (through the rectum), however the sigmoid colon was too thickened to pass easily through the rectum. In light of this, a lower abdominal incision would be required. The robotic stapler was then used to staple the proximal rectum. I then scrubbed back into the case to perform the anastomosis. The robot was undocked, and an incision was created in the suprapubic region within the bounds of a previous Pfannenstiel scar. This was taken down to the fascia using sharp and blunt dissection. The midline fascia was then incised vertically. The Gamaliel wound retractor was placed onto the patient. The surgical specimen was then removed from the patient. The descending colon was brought out through the lower abdominal incision. A 29 EEA stapler was chosen to create the anastomosis. The staple line was removed from the descending colon. The anvil was placed into the descending colon, and sutured into place using 2-0 Vicryl pursestring suture. Once this was completed, the 29 EEA stapler was inserted into the rectum, and passed up to the staple line. This occurred without incident. The spike was then deployed through the staple line at the proximal rectum. The anvil was attached to the stapler. The stapler was closed and fired according to turbogenerator operator recommendation. The stapler was removed, and inspected on the back table. 2 complete donut rings of tissue were found within the stapler. The anastomosis was at this time complete. 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 The 5 mm, supraumbilical, and 8 mm robotic trochars were removed. The 12 mm right lower quadrant trocar was removed, and the fascia was opened proximally, distally, medially, and laterally (in a cruciate fashion). This was done large enough to admit two full fingers. The terminal ileum was then brought up through the fascial defect. An 18 Burmese Monroy catheter was used as a strut, to hold the bowel in an exterior position. After this was completed, attention was turned to closure. The fascia of the lower midline incision was closed using #1 PDS suture in simple running fashion. The supra umbilical incision was closed using 0 Vicryl suture in [id number] fashion. The skin was closed using skin shelbie. Dressings were placed. The ileostomy was then matured in Marianne fashion. This was done with 3-0 Vicryl suture circumferentially. An ostomy appliance was placed, and the procedure was concluded. All sponge, instrument, and needle counts were correct x2. Condition: Stable. Carole Vasquez PA-C was scrubbed and present the entirety of the procedure. She assisted with all portions of the procedure including opening of the abdomen, placement of the trochars, docking of the robot, exchanging of the robo tic instruments, extraction of the specimen, creation of the anastomosis, creation of the ileostomy, closure of the fascia, and closure of the skin.
== END 2020-06-21 20:10 | disposition home health service (06) | DRG 330 ==
LOC: INOR 06:02 → 4N 14:24
PROVIDERS: ADMIT Surgery; ATTEND Surgery
PROC: 0D1B0Z4 Bypass Ileum to Cutaneous, Open Approach (ICD-10-PCS; 2020-06-18)
PROC: 8E0W3CZ Robotic Assisted Procedure of Trunk Region, Percutaneous Approach (ICD-10-PCS; 2020-06-18)
PROC: 0DBN0ZZ Excision of Sigmoid Colon, Open Approach (ICD-10-PCS; principal; 2020-06-18 08:00)
DX: K57.32 Diverticulitis of large intestine without perforation or abscess without bleeding (principal); E27.1 Primary adrenocortical insufficiency; I10 Essential (primary) hypertension; E78.00 Pure hypercholesterolemia, unspecified; M19.90 Unspecified osteoarthritis, unspecified site; Z82.49 Family history of ischemic heart disease and other diseases of the circulatory system; F17.210 Nicotine dependence, cigarettes, uncomplicated; Z95.828 Presence of other vascular implants and grafts; Z83.3 Family history of diabetes mellitus; Z79.899 Other long term (current) drug therapy; Z90.49 Acquired absence of other specified parts of digestive tract; Z53.31 Laparoscopic surgical procedure converted to open procedure; Z79.52 Long term (current) use of systemic steroids; Z88.6 Allergy status to analgesic agent; Z03.818 Encounter for observation for suspected exposure to other biological agents ruled out
CPT/HCPCS: 36415; 71046; 790; 80048; 84132; 85025; 85027; 85610; 85730; 86850; 86900; 86901; 87635; 88305; 88307; 93005; 93010; 94799; C1758; C9803; J0131; J0330; J0694; J1170; J1650; J1720; J1741; J1885; J2250; J2405; J2550; J2704; J2930; J3010; J3490; J7050; J7060; J7121; S0028

== ENCOUNTER 2020-07-13 18:43 | Emergency (ER) | payer BC, OTHER ==
--- NOTE | 2020-07-13 18:57 | ER Document Report ---
ED Medical Screen (RME) - General Chief Complaint: Abdominal Pain Stated Complaint: ABDOMINAL PAIN Time Seen by Provider: 07/13/20 18:54 Primary Care Provider: WHITNEY JONES MD [Primary Care Provider] - Follow up as needed Notes: Patient states she had a colon resection on 06/18/2020 and has since had complications including seroma development. Patient states that she had to have her wound open and drained and she has since developed another collection of fluid. Patient states she has had low-grade fevers. No nausea vomiting or diarrhea. Patient is supposed to meet Dr. Wallace here. I have greeted and performed a rapid initial assessment of this patient. A comprehensive ED assessment and evaluation of the patient, analysis of test results and completion of the medical decision making process will be conducted by additional ED providers. TRAVEL OUTSIDE OF THE [place] IN LAST 30 DAYS: No - Related Data Allergies/Adverse Reactions: diphenhydramine Adverse Reaction (Intermediate, Verified 07/13/20 18:53) JITTERY, AMS morphine [Morphine] Adverse Reaction (Intermediate, Verified 07/13/20 18:53) VOMITING hydromorphone [From Dilaudid] Adverse Reaction (Verified 07/13/20 18:53) Past Medical History - Past Medical History Cardiac Medical History: Reports: Hx Hypercholesterolemia, Hx Hypertension Denies: Hx Atrial Fibrillation, Hx Congestive Heart Failure, Hx Coronary Artery Disease, Hx Heart Attack, Hx Peripheral Vascular Disease, Hx Heart Murmur Pulmonary Medical History: Reports: Hx COPD - BEGINNING STAGES Denies: Hx Asthma, Hx Bronchitis, Hx Pneumonia Neurological Medical History: Reports: Hx Migraine. Denies: Hx Cerebrovascular Accident, Hx Seizures GI Medical History: Reports: Hx Gastroesophageal Reflux Disease. Denies: Hx Crohn's Disease, Hx Hiatal Hernia, Hx Irritable Bowel, Hx Liver Failure, Hx Pancreatitis, Hx Ulcer Musculoskeltal Medical History: Reports Hx Arthritis, Denies Hx Fibromyalgia, Denies Hx Muscular Dystrophy Psychiatric Medical History: Reports: Hx Depression Traumatic Medical History: Denies: Hx Fractures Past Surgical History: Reports: Hx Appendectomy, Hx Section, Hx Hysterectomy, Hx Orthopedic Surgery - c-spine fusion, Hx Tonsillectomy, Hx Vascular Surgery - x2 brain aneurysm stents. Denies: Hx Bowel Surgery, Hx Cholecystectomy, Hx Colostomy, Hx Coronary Artery Bypass Graft, Hx Gastric Bypass Surgery, Hx Herniorrhaphy, Hx Mastectomy, Hx Pacemaker, Hx Tubal Ligation - Immunizations Hx Diphtheria, Pertussis, Tetanus Vaccination: Yes Physical Exam - Vital signs Vitals: Temp Pulse Resp BP Pulse Ox 98.9 F 81 18 116/65 97 07/13/20 18:48 07/13/20 18:48 07/13/20 18:48 07/13/20 18:48 07/13/20 18:48 - General General appearance: Appears well, Alert Notes: Lower abdominal tenderness Course - Vital Signs Vital signs: Temp Pulse Resp BP Pulse Ox 98.9 F 81 18 116/65 97 07/13/20 18:48 07/13/20 18:48 07/13/20 18:48 07/13/20 18:48 07/13/20 18:48 Doctor's Discharge - Discharge Referrals: WHITNEY JONES MD [Primary Care Provider] - Follow up as needed
--- NOTE | 2020-07-13 19:43 | ER Document Report ---
ED GI/ - General Chief Complaint: Abdominal Pain Stated Complaint: ABDOMINAL PAIN Time Seen by Provider: 07/13/20 18:54 Primary Care Provider: WHITNEY JONES MD [Primary Care Provider] - Follow up as needed Notes: CHIEF COMPLAINT: Possible seroma HPI: 50-year-old female presenting for lower abdominal pain possible seroma related to recent surgery. Patient states that she had a bowel resection with ostomy placement in June. States 2 weeks ago she developed 2 seromas in the abdomen and had to have these drained. States she began having increasing pain below the ostomy similar to previous seroma in the last several days call the surgery office and was referred into the emergency department to be evaluated by the surgeon. No fever no vomiting. Patient does report drainage from the ostomy stoma ROS: See HPI - all other systems were reviewed and are otherwise negative Constitutional: no fever GI: no vomiting, no diarrhea, + abdominal pain : no dysuria Integumentary: + rash Allergy: no hives Musculoskeletal: no extremity pain or swelling Neurological: no numbness/tingling, no weakness MEDICATIONS: I agree with the patient medications as charted by the RN. ALLERGIES: I agree with the allergies as charted by the RN. PAST MEDICAL HISTORY/PAST SURGICAL HISTORY: Reviewed and agree as charted by RN. SOCIAL HISTORY: Reviewed and agree as charted by RN. FAMILY HISTORY: No significant familial comorbid conditions directly related to patient complaint EXAM: Reviewed vital signs as charted by RN. CONSTITUTIONAL: Alert and oriented and responds appropriately to questions. Well-appearing; well-nourished HEAD: Normocephalic; atraumatic EYES: Conjunctivae clear, sclerae non-icteric ENT: normal nose; no rhinorrhea; moist mucous membranes NECK: Supple without meningismus; non-tender; no cervical lymphadenopathy, no masses CARD: RRR; no murmurs, no clicks, no rubs, no gallops; symmetric distal pulses RESP: Normal chest excursion without splinting or tachypnea ABD/GI: Normal bowel sounds; non-distended; soft, palpable mass over the right of the midline lower abdomen inferior to the right lower quadrant ostomy which has pink stoma. Very slight overlying erythema in this area BACK: The back appears normal EXT: Normal ROM in all joints; no cyanosis, no effusions, no edema SKIN: Normal color for age and race; warm; dry; good turgor NEURO: Moves all extremities equally; Motor and sensory function intact PSYCH: The patient's mood and manner are appropriate. Grooming and personal hygiene are appropriate. MDM: 50-year-old female with possible seroma in the abdomen had similar drained 2 weeks ago. Have spoken with Dr. Wallace the surgeon who is in the emergency department and will evaluate the patient, disposition pending TRAVEL OUTSIDE OF THE [place] IN LAST 30 DAYS: No - Related Data Allergies/Adverse Reactions: diphenhydramine Adverse Reaction (Intermediate, Verified 07/13/20 18:53) JITTERY, AMS morphine [Morphine] Adverse Reaction (Intermediate, Verified 07/13/20 18:53) VOMITING hydromorphone [From Dilaudid] Adverse Reaction (Verified 07/13/20 18:53) Past Medical History - Social History Smoking Status: Current Every Day Smoker Family History: CAD - father of [place] at age 42, Hyperlipidemia, Hypertension Patient has homicidal ideation: No - Past Medical History Cardiac Medical History: Reports: Hx Hypercholesterolemia, Hx Hypertension Denies: Hx Atrial Fibrillation, Hx Congestive Heart Failure, Hx Coronary Artery Disease, Hx Heart Attack, Hx Peripheral Vascular Disease, Hx Heart Murmur Pulmonary Medical History: Reports: Hx COPD - BEGINNING STAGES Denies: Hx Asthma, Hx Bronchitis, Hx Pneumonia Neurological Medical History: Reports: Hx Migraine. Denies: Hx Cerebrovascular Accident, Hx Seizures GI Medical History: Reports: Hx Gastroesophageal Reflux Disease. Denies: Hx Crohn's Disease, Hx Hiatal Hernia, Hx Irritable Bowel, Hx Liver Failure, Hx Pancreatitis, Hx Ulcer Musculoskeletal Medical History: Reports Hx Arthritis, Denies Hx Fibromyalgia, Denies Hx Muscular Dystrophy Psychiatric Medical History: Reports: Hx Depression Traumatic Medical History: Denies: Hx Fractures Past Surgical History: Reports: Hx Appendectomy, Hx Section, Hx Hysterectomy, Hx Orthopedic Surgery - c-spine fusion, Hx Tonsillectomy, Hx Vascular Surgery - x2 brain aneurysm stents. Denies: Hx Bowel Surgery, Hx Cholecystectomy, Hx Colostomy, Hx Coronary Artery Bypass Graft, Hx Gastric Bypass Surgery, Hx Herniorrhaphy, Hx Mastectomy, Hx Pacemaker, Hx Tubal Ligation - Immunizations Hx Diphtheria, Pertussis, Tetanus Vaccination: Yes Physical Exam - Vital signs Vitals: Temp Pulse Resp BP Pulse Ox 98.9 F 81 18 116/65 97 07/13/20 18:48 07/13/20 18:48 07/13/20 18:48 07/13/20 18:48 07/13/20 18:48 Course - Re-evaluation Re-evalutation: 07/13/20 21:44 Dr. Wallace has drained the seroma and put discharge instructions in. Will discharge the patient - Vital Signs Vital signs: Temp Pulse Resp BP Pulse Ox 98.9 F 91 19 116/60 100 07/13/20 18:48 07/13/20 21:15 07/13/20 21:15 07/13/20 21:15 07/13/20 21:15 Discharge - Discharge Clinical Impression: Seroma after procedure Condition: Stable Disposition: HOME, SELF-CARE Additional Instructions: Follow-up with Dr. Schmidt in 2 weeks. Home health nurse to pack the lower abdominal wound with 4 inch saline moistened Kerlix roll approximately 20 to 25 inches and repeat daily. No use individual 4 x 4 sponges to pack the wound and cover with 4 x 4's ABD and tape. You may shower but do not take a tub bath. Take Tylenol for pain, call surgery clinic for any concerns or problems Referrals: WHITNEY JONES MD [Primary Care Provider] - Follow up as needed
[2020-07-13] MEDS ORDERED: MIDAZOLAM 2 MG/2 ML INJ IV ONE (20:04)
[2020-07-13] MEDS ORDERED: FENTANYL CITRATE INJ/PF 100 MCG/2 ML AMPUL IV ONE (20:04)
[2020-07-13] MEDS ORDERED: NORMAL SALINE 1000 ML 1,000 ML IV PRN (20:05)
[2020-07-13] MEDS ORDERED: LIDOCAINE 1% INJ (10 MG/ML) 10 ML MDV INJ ONE (20:07)
[2020-07-13] MEDS ORDERED: LIDOCAINE 1% INJ-PF (10 MG/ML) 30 ML SDV ONE (20:58)
--- NOTE | 2020-07-13 21:25 | Operative Report ---
Operative Report DATE OF SURGERY: 07/13/20 PREOPERATIVE DIAGNOSIS: Swelling and pain lower midline abdomen POSTOPERATIVE DIAGNOSIS: Subcutaneous post-surgical incision seroma OPERATION: Drainage of abdominal surgical wound subcutaneous seroma SURGEON: IMAN RUTH ANESTHESIA: Moderate Sedation - 2 mg of Versed; 50 mcg of fentanyl; 30 mL's of 1% lidocaine TISSUE REMOVED OR ALTERED: 50 mL's of subcutaneous seroma from abdominal wound COMPLICATIONS: None ESTIMATED BLOOD LOSS: None INTRAOPERATIVE FINDINGS: 50 mL's of clear seroma in the lower midline subcutaneous tissue PROCEDURE: The procedure was done in the emergency room, the patient was was in a supine position, the lower abdomen prepped and draped in a sterile fashion, the area was infiltrated with lidocaine and the patient was given IV sedation as above. The lower transverse incision was opened with scissors and a finger was entered and directed upward. Approximately 50 mL of clear serous fluid were drained. Cultures for aerobic anaerobic Gram stain were obtained from this fluid. Following this, the subcutaneous cavity was irrigated with approximately 200 mL of normal saline and packed with normal saline moist Kerlix roll, followed by 4 x 4's ABDs and tape. The patient tolerated procedure well.
--- NOTE | 2020-07-13 21:28 | PDOC H&P ---
History of Present Illness Admission Date/PCP: WHITNEY JONES MD Patient complains of: lower abdominal incisional pain History of Present Illness: SUNDAR HUBBARD is a 50 year old female, status post robotic laparoscopic low anterior resection for chronic diverticulitis on June 16, 2020, who presents to the emergency room with a complaint of lower abdominal midline bulge and pain. During the robotic procedure, the patient underwent a skin incision just above the pubis utilized to perform the colon anastomosis. 2 weeks ago she presented to the surgery office complaining of pain and swelling in the lower transverse abdominal incision; this was opened and drained in the office with a large amount of pus obtained. Since then she has been packing at the incision twice a day with normal saline wet-to-dry technique. Past Medical History Cardiac Medical History: Reports: Hyperlipidema, Hypertension Denies: Atrial Fibrillation, Congestive Heart Failure, Coronary Artery Disease, Myocardial Infarction, Peripheral Vascular Disease, Heart Murmur Pulmonary Medical History: Reports: Chronic Obstructive Pulmonary Disease (COPD) - BEGINNING STAGES Denies: Asthma, Bronchitis, Pneumonia Neurological Medical History: Reports: Migraine Denies: Seizures GI Medical History: Reports: Gastroesophageal Reflux Disease Denies: Crohn's Disease, Hiatal Hernia Musculoskeltal Medical History: Reports: Arthritis Denies: Fibromyalgia Psychiatric Medical History: Reports: Depression Hematology: Denies: Anemia Past Surgical History Past Surgical History: Reports: Appendectomy, Section, Hysterectomy, Orthopedic Surgery - c-spine fusion, Tonsillectomy, Vascular Surgery - x2 brain aneurysm stents Denies: Amputation, Cholecystectomy, Colostomy, Coronary Artery Bypass Graft, Gastric Bypass Surgery, Herniorrhaphy, Mastectomy, Pacemaker, Tubal Ligation Social History Smoking Status: Current Every Day Smoker Hx Recreational Drug Use: No Hx Prescription Drug Abuse: No Family History Family History: CAD - father of [place] at age 42, Hyperlipidemia, Hypertension Parental Family History Reviewed: No Children Family History Reviewed: No Sibling(s) Family History Reviewed.: No Medication/Allergy Home Medications: Estrogens,Conjugated [Premarin 0.625 mg Tablet] 0.625 mg PO DAILY 08/10/12 Lisinopril/Hydrochlorothiazide [Lisinopril-Hctz 10-12.5 mg Tab] 1 each PO DAILY 08/10/12 Venlafaxine HCl [Effexor Xr] 150 mg PO DAILY 08/10/12 Atorvastatin Calcium [Lipitor 40 mg Tablet] 10 mg PO QHS 12/20/17 Cetirizine HCl [Zyrtec] 10 mg PO DAILY 12/20/17 Methocarbamol [Robaxin 500 mg Tablet] 500 mg PO QHS 12/20/17 Ropinirole HCl [Requip] 1 mg PO QHS 12/20/17 Temazepam [Restoril] 7.5 mg PO QHS 12/20/17 Cholecalciferol (Vitamin D3) [Vitamin D3] 50,000 unit PO .QMOMDAY 12/22/17 Fenofibrate Nanocrystallized [Tricor 145 mg Tablet] 145 mg PO QHS 12/22/17 Hydrocortisone [Cortef] 10 mg PO HSP PRN 05/09/19 Hydrocortisone [Cortef] 20 mg PO DAILY 05/09/19 Potassium Chloride 10 meq PO DAILY 05/09/19 Ondansetron [Zofran Odt 4 mg Tablet] 4 mg PO Q4HP PRN #20 tab.rapdis 06/02/20 Promethazine HCl [Phenergan 25 mg Tablet] 25 mg PO Q4HP PRN #14 tablet 06/02/20 Pantoprazole Sodium [Protonix [address] Tablet] 40 mg PO QAM 06/18/20 Diphenoxylate HCl/Atrop Sulf [Lomotil 2.5 mg Tablet] 2 tab PO BID #120 tablet 06/21/20 Diphenoxylate HCl/Atropine [Lomotil Tablet] 2 each PO BID #120 tablet 06/21/20 Hydrocodone/Acetaminophen [[place] 10-325 mg Tablet] 1 tab PO Q4HP PRN #30 tablet 06/21/20 Allergies/Adverse Reactions: diphenhydramine Adverse Reaction (Intermediate, Verified 07/13/20 18:53) JITTERY, AMS morphine [Morphine] Adverse Reaction (Intermediate, Verified 07/13/20 18:53) VOMITING hydromorphone [From Dilaudid] Adverse Reaction (Verified 07/13/20 18:53) Physical Exam Vital Signs: Temp Pulse Resp BP Pulse Ox 98.9 F 81 18 116/65 97 07/13/20 18:48 07/13/20 18:48 07/13/20 18:48 07/13/20 18:48 07/13/20 18:48 Intake & Output 07/12/20 07/13/20 07/14/20 06:59 06:59 06:59 Weight 74.3 kg General appearance: PRESENT: mild distress, obese Head exam: PRESENT: atraumatic Eye exam: PRESENT: EOMI Mouth exam: PRESENT: moist, neck supple Neck exam: PRESENT: full ROM Respiratory exam: PRESENT: clear to auscultation holly Cardiovascular exam: PRESENT: RRR GI/Abdominal exam: PRESENT: soft, tenderness - Localized about 4 fingerbreadths above the transverse suprapubic incision, no drainage is noted from the open section of the lower transverse incision Rectal exam: PRESENT: deferred Assessment & Plan - Time Anticipated Discharge Disposition: Home, Self Care Anticipated Discharge Timeframe: now - Plan Summary Plan Summary: Assessment: Status post laparoscopic robotic low anterior resection June 15, 2020 Status post incisional drainage of the lower transverse abdominal wound with purulent drainage 2 weeks ago Patient returns complaining of lower abdominal midline swelling and tenderness above the suprapubic incision Plan: Incisional drainage of the lower abdominal midline swelling under local and IV sedation Procedure, risks, benefits, explained to the patient, she understands all the above, she desires to proceed Large subcutaneous seroma drained Disposition: Discharge from emergency room Follow-up with Dr. Schmidt in 2 weeks Home health care nurse to pack the lower abdominal wound and cavity with 4 inch saline moist Kerlix roll approximately 20 to 25 inches, repeat daily; no use individual 4 x 4 sponges to pack the wound, covered with 4 x 4's, ABD and with tape Patient can shower No tub bath No narcotics needed for pain, Tylenol only
[2020-07-13 22:35] VITALS: BP 112/54
--- NOTE | 2020-07-14 14:31 | ER Document Report ---
Doctor's Note Notes: 07/14/20 14:30 Patient's home health nurse called in today as they were doing the dressing change patient is in significant pain. Dr. Wallace's discharge note specifically yesterday indicated Tylenol only but patient states this is not helping her pain today. They are requesting that I call in a prescription for some pain medication for the patient. She has taken hydrocodone in the past. I will prescribe her a short course of hydrocodone and they are to follow-up with the surgery clinic tomorrow for further pain management
== END 2020-07-13 22:12 | disposition home or self-care (01) ==
LOC: ER 18:43
DX: L76.34 Postprocedural seroma of skin and subcutaneous tissue following other procedure (principal); Y83.8 Other surgical procedures as the cause of abnormal reaction of the patient, or of later complication, without mention of misadventure at the time of the procedure; R10.9 Unspecified abdominal pain; R50.9 Fever, unspecified; E78.00 Pure hypercholesterolemia, unspecified; I10 Essential (primary) hypertension; Z88.6 Allergy status to analgesic agent; Z90.710 Acquired absence of both cervix and uterus
CPT/HCPCS: 99284; 96374; 96375; 87070; 87205; 87075; 87077; 87186; 10140; J2250; J3010; J7030

== ENCOUNTER → 2020-08-12 | Outpatient (CLI) | payer BC, OTHER ==
--- NOTE | 2020-08-12 16:28 | RADIOLOGY REPORT (SQ) ---
EXAM DESCRIPTION: BARIUM ENEMA W/AIR IMAGES COMPLETED DATE/TIME: 08/12/2020 10:56 am REASON FOR STUDY: Z90.49 ACQUIRED ABSENCE OF OTHER SPECIFIED PARTS OF DIGESTIVE TRACT Z90.49 ACQUIR ED ABSENCE OF OTHER SPECIFIED PARTS OF DIGESTIV Z93.3 COLOSTOMY STATUS COMPARISON: None. FLUOROSCOPY TIME: 3.3 minutes 20 images saved to PACS. TECHNIQUE: Following retrograde filling of the colon with water-soluble contrast, fluoroscopic spot and overhead imaging of the colon was obtained and saved to PACS. LIMITATIONS: None. FINDINGS: CYBER OPERATOR KUB: Normal abdominal film with adequate bowel prep. CECUM: Not applicable, diverting ileostomy present. ASCENDING COLON: Normal mucosa without intraluminal filling defects, intrinsic or extrinsic masses, o r lesions. TRANSVERSE COLON: Normal mucosa without intraluminal filling defects, intrinsic or extrinsic masses, or lesions. DESCENDING COLON: Normal mucosa without intraluminal filling defects, intrinsic or extrinsic masses, or lesions. SIGMOID COLON: No evidence for fixed stricture at the rectosigmoid anastomosis. No extravasation of contrast. RECTUM: Normal mucosa without intraluminal filling defects, intrinsic or extrinsic masses, or lesions . POST EVAC: Near complete evacuation of contrast with no additional findings. OTHER: No other significant finding. IMPRESSION: RECTOSIGMOID ANASTOMOSIS IS INTACT WITHOUT EVIDENCE FOR FIXED STRICTURE. RIGHT LOWER QU ADRANT ILEOSTOMY PRESENT. COMMENT: NONE Quality ID [id number]: Final reports for procedures using fluoroscopy that document radiation exposure lópez elia, or exposure time and number of fluorographic images (if radiation exposure indices are not avail able) TECHNICAL DOCUMENTATION: JOB ID: [id number] 2010 [place]- All Rights Reserved Reading location - IP/workstation name: [email or web address]
== END ==
LOC: RAD 09:37
PROVIDERS: ATTEND Surgery
DX: Z48.815 Encounter for surgical aftercare following surgery on the digestive system (principal); Z90.49 Acquired absence of other specified parts of digestive tract; Z93.3 Colostomy status
CPT/HCPCS: 74280

== ENCOUNTER 2020-09-10 07:27 | Inpatient (IN) | payer BC, OTHER ==
[2020-09-05 12:51] LABS: ABSOLUTE BASOPHILS # (AUTO) 0.1 10^3/uL (0.0-0.2); ABSOLUTE EOSINOPHILS # (AUTO) 0.2 10^3/uL (0.0-0.6); ABSOLUTE LYMPHOCYTES (AUTO) 2.2 10^3/uL (0.5-4.7); ABSOLUTE MONOCYTES (AUTO) 0.9 10^3/uL (0.1-1.4); BASOPHILS % (AUTO) 0.6 % (0-2); EOSINOPHILS % (AUTO) 1.4 % (0-6); HEMOGLOBIN 12.6 g/dL (12.0-15.5); LYMPHOCYTES % (AUTO) 19.8 % (13-45); MEAN CORPUSCULAR HEMOGLOBIN 27.5 pg (27.0-33.4); MEAN CORPUSCULAR HGB CONC 33.3 g/dL (32.0-36.0); MEAN CORPUSCULAR VOLUME 83 fl (80-97); MONOCYTES % (AUTO) 7.6 % (3-13); PLATELET COUNT 339 10^3/uL (150-450); SEGMENTED NEUTROPHILS % (AUTO) 70.6 % (42-78); TOTAL CELLS COUNTED % (AUTO) 100 %; WHITE BLOOD COUNT 11.3 10^3/uL (4.0-10.5)
[2020-09-05 13:17] LABS: ANION GAP 12 (5-19); BLOOD UREA NITROGEN 19 mg/dL (7-20); CALCIUM 10.6 mg/dL (8.4-10.2); CARBON DIOXIDE 24 mmol/L (22-30); CHLORIDE 104 mmol/L (98-107); GLUCOSE 97 mg/dL (75-110); POTASSIUM 3.7 mmol/L (3.6-5.0)
--- NOTE | 2020-09-05 18:01 | EKG REPORT ---
SEVERITY:- NORMAL ECG - SINUS RHYTHM : Confirmed by: Ronny Hickman MD 05-Sep-2020 18:00:04
[2020-10-01] MEDS ORDERED: IBUPROFEN 800 MG in NORMAL SALINE 250 ML IV PRN (05:00)
[2020-10-01] MEDS ORDERED: CEFOXITIN SODIUM 2 GM in DEXTROSE 5%-WATER 100 ML IV PRN (05:00)
[2020-10-01] MEDS ORDERED: PREGABALIN 50 MG CAPSULE PO PRN (05:00)
[2020-10-01] MEDS ORDERED: ACETAMINOPHEN 1,000 MG/100 ML RTUPB IV PRN (05:00)
[2020-10-01] MEDS ORDERED: LACTATED RINGERS 1000 ML IV PRN (05:00)
[2020-10-01] MEDS ORDERED: PREGABALIN 50 MG CAPSULE ONE (05:25)
[2020-10-01] MEDS ORDERED: ACETAMINOPHEN 1,000 MG/100 ML RTUPB IV ONE (05:48)
[2020-10-01] MEDS ORDERED: SCOPOLAMINE HYDROBROMIDE 1.5 MG PATCH.TD72 ONE (08:37)
[2020-10-01] MEDS ORDERED: FENTANYL CITRATE INJ/PF 250 MCG/5 ML AMPULE ONE (09:53)
[2020-10-01] MEDS ORDERED: MIDAZOLAM 2 MG/2 ML INJ ONE (09:54)
[2020-10-01] MEDS ORDERED: MORPHINE SULFATE 10 MG/ML INJ ONE (09:54)
[2020-10-01] MEDS ORDERED: PROPOFOL INJ 200 MG/20 ML VIAL IV ONE (09:54)
[2020-10-01] MEDS ORDERED: METHYLPREDNISOLONE INJ 125 MG/2 ML SDV ONE (09:55)
[2020-10-01] MEDS ORDERED: BUPIVACAINE HCL 0.25 % INJ/PF (2.5 MG/1 ML) 30 ML VIAL ONE (09:57)
[2020-10-01] MEDS ORDERED: MEPERIDINE HCL/PF INJ 25 MG/1 ML DISP.SYRIN IV PRN (10:51)
[2020-10-01] MEDS ORDERED: FENTANYL CITRATE INJ/PF 100 MCG/2 ML AMPUL IV PRN (10:51)
[2020-10-01] MEDS ORDERED: PROMETHAZINE HCL INJ 25 MG/1 ML VIAL IV PRN (10:51)
[2020-10-01] MEDS ORDERED: DIPHENHYDRAMINE HCL 50 MG/ML VIAL IV PRN (10:51)
[2020-10-01] MEDS: FENTANYL CITRATE INJ/PF 100 MCG/2 ML AMPUL ONE ×2 (12:20→12:59)
[2020-10-01] MEDS ORDERED: HYDROCORTISONE 10 MG TABLET PO SCH (12:30)
[2020-10-01] MEDS ORDERED: PROMETHAZINE HCL INJ 25 MG/1 ML VIAL ONE (12:55)
[2020-10-01] MEDS ORDERED: KETOROLAC TROMETHAMINE INJ/PF 30 MG/1 ML SDV IV SCH (14:00)
[2020-10-01] MEDS ORDERED: ACETAMINOPHEN 1,000 MG/100 ML RTUPB IV SCH (14:00)
--- NOTE | 2020-10-01 14:17 | Operative Report ---
Nonrecallable Operative Report DATE OF SURGERY: 10/01/20 PREOPERATIVE DIAGNOSIS: Unwanted ileostomy, history of sigmoid colon resection. POSTOPERATIVE DIAGNOSIS: Same as above OPERATION: 1. Excision and reversal of right lower quadrant loop ileostomy. 2. Implantation of 9 x 15 cm [place] bio a hernia mesh. SURGEON: SILVIA KULKARNI AUTO BODY ESTIMATOR: ALIN MARSHALL ANESTHESIA: GA TISSUE REMOVED OR ALTERED: Ileostomy COMPLICATIONS: None apparent PROCEDURE: Drain/implants: Xeroform gauze packed into the wound. Procedure in detail: After informed consent was obtained, the patient was brought to the operating room and laid in the supine position. The ileostomy was closed using an 0 silk suture in running, locking fashion. The area of the abdomen was then prepped and draped in a normal sterile fashion. An elliptical incision was created around the ileostomy. Dissection was carried through the subcutaneous tissue using a mixture of sharp dissection, blunt dissection, and electrocautery. The ileostomy was freed from the fascia. Next, the small bowel was exteriorized. A SHERRY-75 stapling device was used to create a [id number] stapled antimesenteric anastomosis. The resulting defect was closed using the SHERRY-75 stapler. Once the bowel was closed, the ileostomy was removed from the mesentery using serial clamps and 0 Vicryl ties. Next the anastomosis was tested. It was found to be free of any leakage of air or liquid. Crotch stitch x2 of 3-0 Vicryl was placed. The anastomosis was then returned to the abdominal cavity. A 9 x 15 cm [place] Bio-A hernia mesh was then inserted into the abdominal cavity. It was affixed to the anterior abdominal wall using transfascial, mattress #1 Prolene sutures. The fascia was then reapproximated using [id number] #1 Prolene sutures. A Xeroform was packed into the wound, and the skin was closed over top using skin shelbie. A dressing was then placed, and the procedure was concluded. All sponge, instrument, and needle counts were correct x2. Condition: Stable.
[2020-10-01] MEDS ORDERED: ROCURONIUM BROMIDE INJ 50 MG/5 ML VIAL IV ONE (15:31)
[2020-10-01] MEDS ORDERED: ONDANSETRON HCL INJ/PF 4 MG/2 ML SDV ONE (15:31)
[2020-10-01] MEDS ORDERED: KETOROLAC TROMETHAMINE 60 MG/2 ML SDV ONE (15:31)
[2020-10-01] MEDS ORDERED: LIDOCAINE 2% INJ-PF (20 MG/ML) 2 ML AMPUL ONE (15:31)
[2020-10-01] MEDS ORDERED: DEXAMETHASONE SOD PHOSPHATE INJ 4 MG/1 ML VIAL ONE (15:31)
[2020-10-01] MEDS ORDERED: SUCCINYLCHOLINE CHLORIDE INJ 200 MG/10 ML VIAL ONE (15:31)
[2020-10-01] MEDS ORDERED: GLYCOPYRROLATE 1 MG/5 ML VIAL ONE (15:31)
[2020-10-01] MEDS ORDERED: NEOSTIGMINE METHYLSULFATE 10 MG/10 ML VIAL ONE (15:31)
[2020-10-01] MEDS: TRAMADOL HCL 50 MG TABLET PO PRN (16:20)
[2020-10-01] MEDS: NORMAL SALINE 1000 ML 1,000 ML IV PRN (16:20)
[2020-10-01] MEDS: ONDANSETRON HCL INJ/PF 4 MG/2 ML SDV IV PRN ×2 (16:27→22:28)
[2020-10-01] MEDS: ACETAMINOPHEN 1,000 MG/100 ML RTUPB IV SCH (17:33)
[2020-10-01] MEDS: KETOROLAC TROMETHAMINE INJ/PF 30 MG/1 ML SDV IV SCH (17:34)
[2020-10-01] MEDS: CEFOXITIN SODIUM 2 GM in DEXTROSE 5%-WATER 100 ML IV SCH (19:53)
[2020-10-01] MEDS ORDERED: ATORVASTATIN CALCIUM 40 MG TABLET PO SCH (22:00)
[2020-10-01] MEDS ORDERED: ROPINIROLE HCL 0.25 MG TABLET PO SCH (22:00)
[2020-10-01] MEDS: ATORVASTATIN CALCIUM 10 MG TABLET PO SCH (22:03)
[2020-10-01] MEDS: METHOCARBAMOL 500 MG TABLET PO SCH (22:03)
[2020-10-01] MEDS: TEMAZEPAM 7.5 MG CAPSULE PO SCH (22:03)
[2020-10-01] MEDS: PANTOPRAZOLE SODIUM 20 MG TABLET.DR PO SCH (22:03)
[2020-10-01] MEDS: ROPINIROLE HCL 1 MG TABLET PO SCH (22:04)
[2020-10-01] MEDS: HYDROMORPHONE HCL INJ/PF 2 MG/ML AMPULE IV PRN (22:19)
[2020-10-02] MEDS: ACETAMINOPHEN 1,000 MG/100 ML RTUPB IV SCH ×3 (01:15→17:39)
[2020-10-02] MEDS: KETOROLAC TROMETHAMINE INJ/PF 30 MG/1 ML SDV IV SCH ×3 (01:16→17:39)
[2020-10-02] MEDS: CEFOXITIN SODIUM 2 GM in DEXTROSE 5%-WATER 100 ML IV SCH (02:23)
[2020-10-02] MEDS: NORMAL SALINE 1000 ML 1,000 ML IV PRN (04:24)
[2020-10-02 05:52] LABS: ABSOLUTE LYMPHOCYTES (AUTO) 2.7 10^3/uL (0.5-4.7); ABSOLUTE NEUT (AUTO) 9.6 10^3/uL (1.7-8.2); BASOPHILS % (AUTO) 0.2 % (0-2); HEMATOCRIT 32.4 % (36.0-47.0); HEMOGLOBIN 10.6 g/dL (12.0-15.5); LYMPHOCYTES % (AUTO) 20.1 % (13-45); MEAN CORPUSCULAR HGB CONC 32.7 g/dL (32.0-36.0); MEAN CORPUSCULAR VOLUME 83 fl (80-97); MONOCYTES % (AUTO) 7.5 % (3-13); PLATELET COUNT 315 10^3/uL (150-450); RED BLOOD COUNT 3.91 10^6/uL (3.72-5.28); RED CELL DISTRIBUTION WIDTH 15.9 % (11.5-14.0); SEGMENTED NEUTROPHILS % (AUTO) 72.2 % (42-78); TOTAL CELLS COUNTED % (AUTO) 100 %; WHITE BLOOD COUNT 13.3 10^3/uL (4.0-10.5)
[2020-10-02 06:08] LABS: ANION GAP 6 (5-19); BLOOD UREA NITROGEN 14 mg/dL (7-20); CALCIUM 9.3 mg/dL (8.4-10.2); CARBON DIOXIDE 24 mmol/L (22-30); CHLORIDE 109 mmol/L (98-107); GLUCOSE 92 mg/dL (75-110); POTASSIUM 4.2 mmol/L (3.6-5.0)
[2020-10-02] MEDS: TRAMADOL HCL 50 MG TABLET PO PRN ×2 (07:44→14:29)
[2020-10-02] MEDS ORDERED: (PENDING PHARMACY ID) (Hydrochlorothiazide [Hydrochlorothiazide] 12.5 MG Capsule) PO SCH (10:00)
[2020-10-02] MEDS ORDERED: VENLAFAXINE HCL 150 MG PO SCH (10:00)
[2020-10-02] MEDS ORDERED: (PENDING PHARMACY ID) (Cetirizine Hcl [Zyrtec] 10 MG Capsule) PO SCH (10:00)
[2020-10-02] MEDS ORDERED: POTASSIUM CHLORIDE 10 MEQ PO SCH (10:00)
[2020-10-02] MEDS ORDERED: ESTROGENS,CONJUGATED 0.625 MG TABLET PO SCH (10:00)
[2020-10-02] MEDS: FENOFIBRATE NANOCRYSTALLIZED 145 MG TABLET PO SCH (10:47)
[2020-10-02] MEDS: VENLAFAXINE HCL 75 MG CAP.SR.24H PO SCH (10:48)
[2020-10-02] MEDS: HYDROCHLOROTHIAZIDE 12.5 MG TABLET PO SCH (10:48)
[2020-10-02] MEDS: POTASSIUM CHLORIDE 10 MEQ TABLET.ER PO SCH (10:48)
[2020-10-02] MEDS: CETIRIZINE 10 MG TABLET PO SCH (10:48)
[2020-10-02] MEDS: PANTOPRAZOLE SODIUM 20 MG TABLET.DR PO SCH ×2 (10:48→17:39)
[2020-10-02] MEDS: HYDROCORTISONE 10 MG TABLET PO SCH (10:49)
[2020-10-02] MEDS: ASPIRIN 81 MG TABLET, CHEWABLE PO SCH (10:49)
[2020-10-02] MEDS: ENOXAPARIN SODIUM INJ 40 MG/0.4 ML DISP.SYRIN SUBCUT SCH (10:49)
[2020-10-02] MEDS: ONDANSETRON HCL INJ/PF 4 MG/2 ML SDV IV PRN (11:03)
--- NOTE | 2020-10-02 11:58 | PDOC PROGRESS REPORT ---
Subjective Date:: 10/02/20 Reason For Visit: ILEOSTOMY REVERSAL,ADDISONS DISEASE Physical Exam Vital Signs: Temp Pulse Resp BP Pulse Ox 98.9 F 94 16 118/62 96 10/01/20 23:29 10/01/20 23:29 10/01/20 23:29 10/01/20 23:29 10/01/20 23:29 Intake & Output 10/01/20 10/02/20 10/03/20 06:59 06:59 06:59 Intake Total 3930 Output Total 5 Balance 3925 Weight 79.5 kg Results Laboratory Results: 10/02/20 04:21 10/02/20 04:21 10/02/20 10/02/20 04:21 04:21 WBC 13.3 H RBC 3.91 Hgb 10.6 L Hct 32.4 L MCV 83 MCH 27.0 MCHC 32.7 RDW 15.9 H Plt Count 315 Seg Neutrophils % 72.2 Sodium 138.8 Potassium 4.2 Chloride 109 H Carbon Dioxide 24 Anion Gap 6 BUN 14 Creatinine 0.59 Est GFR ( Amer) > 60 Glucose 92 Calcium 9.3 Assessment & Plan - Diagnosis (1) Ileostomy in place Is this a current diagnosis for this admission?: Yes - Time Anticipated Discharge Disposition: Home, Self Care Anticipated Discharge Timeframe: within 48 hours - Plan Summary Plan Summary: 1-year-old female status post ileostomy reversal. She complains of significant amounts of pain, however her pain medication does appear to be helping. She has not been out of bed yet. She is not passing flatus. I have encouraged her to use her incentive spirometer and walk in the hallways. Continue with full liquid diet, until she is passing flatus. Awaiting bowel function. Continue with current pain medication regimen. Home when tolerating a diet, and pain is controlled.
[2020-10-02] MEDS: HYDROMORPHONE HCL INJ/PF 2 MG/ML AMPULE IV PRN (12:42)
[2020-10-02] MEDS: TEMAZEPAM 7.5 MG CAPSULE PO SCH (21:34)
[2020-10-02] MEDS: METHOCARBAMOL 500 MG TABLET PO SCH (21:34)
[2020-10-02] MEDS: ATORVASTATIN CALCIUM 10 MG TABLET PO SCH (21:34)
[2020-10-02] MEDS: ROPINIROLE HCL 1 MG TABLET PO SCH (21:34)
[2020-10-03] MEDS: ONDANSETRON HCL INJ/PF 4 MG/2 ML SDV IV PRN ×4 (01:38→17:45)
[2020-10-03] MEDS: ACETAMINOPHEN 1,000 MG/100 ML RTUPB IV SCH ×2 (03:00→09:31)
[2020-10-03] MEDS: KETOROLAC TROMETHAMINE INJ/PF 30 MG/1 ML SDV IV SCH ×3 (03:01→17:46)
[2020-10-03] MEDS: HYDROCHLOROTHIAZIDE 12.5 MG TABLET PO SCH (09:31)
[2020-10-03] MEDS: FENOFIBRATE NANOCRYSTALLIZED 145 MG TABLET PO SCH (09:31)
[2020-10-03] MEDS: POTASSIUM CHLORIDE 10 MEQ TABLET.ER PO SCH (09:31)
[2020-10-03] MEDS: ASPIRIN 81 MG TABLET, CHEWABLE PO SCH (09:32)
[2020-10-03] MEDS: VENLAFAXINE HCL 75 MG CAP.SR.24H PO SCH (09:32)
[2020-10-03] MEDS: CETIRIZINE 10 MG TABLET PO SCH (09:32)
[2020-10-03] MEDS: PANTOPRAZOLE SODIUM 20 MG TABLET.DR PO SCH ×2 (09:32→17:45)
[2020-10-03] MEDS: ENOXAPARIN SODIUM INJ 40 MG/0.4 ML DISP.SYRIN SUBCUT SCH (09:32)
[2020-10-03] MEDS: HYDROCORTISONE 10 MG TABLET PO SCH (09:43)
--- NOTE | 2020-10-03 10:49 | RADIOLOGY REPORT (SQ) ---
EXAM DESCRIPTION: KUB/ABDOMEN (SINGLE VIEW) IMAGES COMPLETED DATE/TIME: 10/03/2020 10:28 am REASON FOR STUDY: nausea, vomiting Z93.2 ILEOSTOMY STATUS COMPARISON: 08/12/2020 NUMBER OF VIEWS: Two views. TECHNIQUE: Supine radiographic image of the abdomen acquired. LIMITATIONS: None. FINDINGS: BOWEL GAS PATTERN: Gas is seen within a prominent loop of featureless bowel within the mid abdomen ; possibly representing the sigmoid colon. Gas is seen to the level of the rectum. CALCIFICATIONS: No suspicious calcifications. SOFT TISSUES: No gross mass or suggestion of organomegaly. HARDWARE: Skin shelbie are seen of the right lower quadrant. BONES: No acute fracture. No worrisome bone lesions. OTHER: No other significant finding. IMPRESSION: Status post right lower quadrant ostomy. Gas is seen within multiple loops of presumabl y large bowel without evidence of obstruction. TECHNICAL DOCUMENTATION: JOB ID: [id number] 2010 [employer]- All Rights Reserved Reading location - IP/workstation name: [email or web address]
[2020-10-03] MEDS: HYDROCODONE/ACETAMINOPHEN 10-325 MG TABLET PO PRN (12:47)
[2020-10-03] MEDS ORDERED: PROMETHAZINE HCL INJ 25 MG/1 ML VIAL IV PRN (13:30)
[2020-10-03] MEDS: ATORVASTATIN CALCIUM 10 MG TABLET PO SCH (22:33)
[2020-10-03] MEDS: ROPINIROLE HCL 1 MG TABLET PO SCH (22:33)
[2020-10-03] MEDS: TEMAZEPAM 7.5 MG CAPSULE PO SCH (22:33)
[2020-10-03] MEDS: METHOCARBAMOL 500 MG TABLET PO SCH (22:33)
[2020-10-04] MEDS: ONDANSETRON HCL INJ/PF 4 MG/2 ML SDV IV PRN ×2 (01:42→17:23)
[2020-10-04] MEDS: KETOROLAC TROMETHAMINE INJ/PF 30 MG/1 ML SDV IV SCH ×3 (01:42→17:22)
[2020-10-04] MEDS: CETIRIZINE 10 MG TABLET PO SCH (10:50)
[2020-10-04] MEDS: VENLAFAXINE HCL 75 MG CAP.SR.24H PO SCH (10:50)
[2020-10-04] MEDS: ASPIRIN 81 MG TABLET, CHEWABLE PO SCH (10:50)
[2020-10-04] MEDS: POTASSIUM CHLORIDE 10 MEQ TABLET.ER PO SCH (10:51)
[2020-10-04] MEDS: PANTOPRAZOLE SODIUM 20 MG TABLET.DR PO SCH ×2 (10:51→17:23)
[2020-10-04] MEDS: FENOFIBRATE NANOCRYSTALLIZED 145 MG TABLET PO SCH (10:52)
[2020-10-04] MEDS: HYDROCORTISONE 10 MG TABLET PO SCH (10:52)
[2020-10-04] MEDS: ENOXAPARIN SODIUM INJ 40 MG/0.4 ML DISP.SYRIN SUBCUT SCH (10:55)
[2020-10-04] MEDS: HYDROCHLOROTHIAZIDE 12.5 MG TABLET PO SCH (11:00)
--- NOTE | 2020-10-04 12:59 | PDOC PROGRESS REPORT ---
Subjective Date:: 10/04/20 Reason For Visit: ILEOSTOMY REVERSAL,ADDISONS DISEASE Physical Exam Vital Signs: Temp Pulse Resp BP Pulse Ox 99.2 F 89 20 97/82 L 90 L 10/04/20 08:00 10/04/20 08:00 10/04/20 08:00 10/04/20 08:00 10/04/20 08:00 Intake & Output 10/03/20 10/04/20 10/05/20 06:59 06:59 06:59 Intake Total 2200 200 Output Total 100 Balance 2100 200 Weight 79.5 kg 79.5 kg Results Laboratory Results: 10/02/20 04:21 10/02/20 04:21 Impressions: KUB X-Ray 10/03/20 00:00 IMPRESSION: Status post right lower quadrant ostomy. Gas is seen within multiple loops of presumably large bowel without evidence of obstruction. Assessment & Plan - Diagnosis (1) Ileostomy in place Is this a current diagnosis for this admission?: Yes - Time Anticipated Discharge Disposition: Home, Self Care Anticipated Discharge Timeframe: within 48 hours - Plan Summary Plan Summary: 50-year-old female status post ileostomy reversal. She still complains of pain, however her medication are helping. She is passing flatus and having BM's. I have encouraged her to use her incentive spirometer and walk in the hallways. Advance to regular diet. She reports nausea and vomiting when taking narcotics. Limit narcotics if possible. Ambulate in hallways. Home when tolerating a diet, nausea is improved, and pain is controlled.
--- NOTE | 2020-10-04 13:03 | PDOC PROGRESS REPORT ---
Subjective Date:: 10/03/20 Reason For Visit: ILEOSTOMY REVERSAL,ADDISONS DISEASE Physical Exam Vital Signs: Temp Pulse Resp BP Pulse Ox 99.2 F 89 20 97/82 L 90 L 10/04/20 08:00 10/04/20 08:00 10/04/20 08:00 10/04/20 08:00 10/04/20 08:00 Intake & Output 10/03/20 10/04/20 10/05/20 06:59 06:59 06:59 Intake Total 2200 200 Output Total 100 Balance 2100 200 Weight 79.5 kg 79.5 kg Results Impressions: Assessment & Plan - Diagnosis (1) Ileostomy in place Is this a current diagnosis for this admission?: Yes - Time Anticipated Discharge Disposition: Home, Self Care Anticipated Discharge Timeframe: within 48 hours - Plan Summary Plan Summary: 50-year-old female status post ileostomy reversal. She still complains of pain, however her medication are helping. She is passing flatus and having BM's. I have encouraged her to use her incentive spirometer and walk in the hallways. Today she reports nausea and vomiting when taking Dilaudid and Ultram. I will check a KUB to assess her bowel gas pattern. KUB today. Add phenrgan. D/c ultram, and replace with [place] in an effort to diminish nausea. Ambulate in hallways. Home when tolerating a diet, nausea is improved, and pain is controlled.
[2020-10-04] MEDS: HYDROCODONE/ACETAMINOPHEN 10-325 MG TABLET PO PRN (17:23)
[2020-10-04] MEDS: ATORVASTATIN CALCIUM 10 MG TABLET PO SCH (21:51)
[2020-10-04] MEDS: TEMAZEPAM 7.5 MG CAPSULE PO SCH (21:51)
[2020-10-04] MEDS: METHOCARBAMOL 500 MG TABLET PO SCH (21:51)
[2020-10-04] MEDS: ROPINIROLE HCL 1 MG TABLET PO SCH (21:51)
[2020-10-05] MEDS: KETOROLAC TROMETHAMINE INJ/PF 30 MG/1 ML SDV IV SCH ×3 (02:13→17:10)
[2020-10-05] MEDS: VENLAFAXINE HCL 75 MG CAP.SR.24H PO SCH (10:09)
[2020-10-05] MEDS: PANTOPRAZOLE SODIUM 20 MG TABLET.DR PO SCH ×2 (10:11→17:10)
[2020-10-05] MEDS: ASPIRIN 81 MG TABLET, CHEWABLE PO SCH (10:11)
[2020-10-05] MEDS: HYDROCHLOROTHIAZIDE 12.5 MG TABLET PO SCH (10:11)
[2020-10-05] MEDS: POTASSIUM CHLORIDE 10 MEQ TABLET.ER PO SCH (10:11)
[2020-10-05] MEDS: CETIRIZINE 10 MG TABLET PO SCH (10:12)
[2020-10-05] MEDS: FENOFIBRATE NANOCRYSTALLIZED 145 MG TABLET PO SCH (10:13)
[2020-10-05] MEDS: HYDROCORTISONE 10 MG TABLET PO SCH (10:13)
[2020-10-05] MEDS: ENOXAPARIN SODIUM INJ 40 MG/0.4 ML DISP.SYRIN SUBCUT SCH (10:13)
--- NOTE | 2020-10-05 15:05 | PDOC DISCHARGE SUMMARY ---
General - Admit/Disc Date/PCP Admission Date/Primary Care Provider: 10/01/20 07:01 VANIA LO DO Discharge Date: 10/05/20 - Discharge Diagnosis Final Diagnosis: unwanted ileostomy - Assessment Summary: 50-year-old female admitted for reversal of her unwanted ileostomy. The patient is several months status post sigmoid colon resection with diverting ileostomy. 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 She underwent ileostomy reversal, and was taken to the floor in stable condition. She did well after surgery. Patient has a history of intolerance to narcotics. She continues to have nausea with the administration of narcotics, however she is having bowel movements and passing flatus. X-rays were obtained showing air in the colon, with a nonobstructive gas pattern. Patient improved significantly over the course of her stay. By 10/05/2020, she was ambulating, tolerating a regular diet, having bowel movements, and was requesting discharge. - Additional Information Resuscitation Status: Full Code Discharge Diet: As Tolerated Discharge Activity: No Lifting Over 10 Pounds, No Lifting/Push/Pulling Referrals: VANIA LO DO [Primary Care Provider] - Prescriptions: Hydrocodone/Acetaminophen [[facility] 10-325 mg Tablet] 1 tab PO Q4HP PRN #28 tablet PRN Reason: For Pain Ondansetron [Zofran Odt 4 mg Tablet] 1 tab PO Q4HP PRN #14 tab.rapdis PRN Reason: For Nausea/Vomiting Home Medications: Estrogens,Conjugated [Premarin 0.625 mg Tablet] 0.45 mg PO DAILY 08/10/12 Venlafaxine HCl [Effexor Xr] 150 mg PO DAILY 08/10/12 Atorvastatin Calcium [Lipitor 40 mg Tablet] 10 mg PO QHS 12/20/17 Cetirizine HCl [Zyrtec] 10 mg PO DAILY 12/20/17 Methocarbamol [Robaxin 500 mg Tablet] 500 mg PO QHS 12/20/17 Ropinirole HCl [Requip] 1 mg PO QHS 12/20/17 Temazepam [Restoril] 15 mg PO QHS 12/20/17 Cholecalciferol (Vitamin D3) [Vitamin D3] 50,000 unit PO .QMOM12/22/17 Potassium Chloride 10 meq PO DAILY 07/09/19 Aspirin 81 mg PO DAILY 09/05/20 Diphenoxylate HCl/Atrop Sulf [Lomotil 2.5 mg Tablet] 2 tab PO BID 09/05/20 Fenofibrate Nanocrystallized [Tricor] 145 mg PO QHS 09/05/20 Hydrochlorothiazide 12.5 mg PO DAILY 09/05/20 Hydrocortisone [Cortef] 20 mg PO QAM 09/05/20 Lisinopril [Prinivil 10 mg Tablet] 10 mg PO DAILY 09/05/20 Pantoprazole Sodium [Protonix [address] Tablet] 20 mg PO BID 09/05/20 Hydrocortisone [Cortef 10 mg Tablet] 10 mg PO QHS 10/01/20 Hydrocodone/Acetaminophen [[facility] 10-325 mg Tablet] 1 tab PO Q4HP PRN #28 tablet 10/05/20 Ondansetron [Zofran Odt 4 mg Tablet] 1 tab PO Q4HP PRN #14 tab.rapdis 10/05/20 History of Present Illiness History of Present Illness: SUNDAR HUBBARD is a 50 year old female Physical Exam Vital Signs: Temp Pulse Resp BP Pulse Ox 98.4 F 80 16 105/67 97 10/05/20 11:34 10/05/20 11:34 10/05/20 11:34 10/05/20 11:34 10/05/20 11:34 Intake & Output 10/04/20 10/05/20 10/06/20 06:59 06:59 06:59 Intake Total 200 1116 120 Balance 200 1116 120 Weight 79.5 kg 79.5 kg Results Laboratory Results: WBC 13.3 10^3/uL (4.0-10.5) H 10/02/20 04:21 RBC 3.91 10^6/uL (3.72-5.28) 10/02/20 04:21 Hgb 10.6 g/dL (12.0-15.5) L 10/02/20 04:21 Hct 32.4 % (36.0-47.0) L 10/02/20 04:21 MCV 83 fl (80-97) 10/02/20 04:21 MCH 27.0 pg (27.0-33.4) 10/02/20 04:21 MCHC 32.7 g/dL (32.0-36.0) 10/02/20 04:21 RDW 15.9 % (11.5-14.0) H 10/02/20 04:21 Plt Count 315 10^3/uL (150-450) 10/02/20 04:21 Lymph % (Auto) 20.1 % (13-45) 10/02/20 04:21 Bland % (Auto) 7.5 % (3-13) 10/02/20 04:21 Eos % (Auto) 0.0 % (0-6) 10/02/20 04:21 Baso % (Auto) 0.2 % (0-2) 10/02/20 04:21 Absolute Neuts (auto) 9.6 10^3/uL (1.7-8.2) H 10/02/20 04:21 Absolute Lymphs (auto) 2.7 10^3/uL (0.5-4.7) 10/02/20 04:21 Absolute Monos (auto) 1.0 10^3/uL (0.1-1.4) 10/02/20 04:21 Absolute Eos (auto) 0.0 10^3/uL (0.0-0.6) 10/02/20 04:21 Absolute Basos (auto) 0.0 10^3/uL (0.0-0.2) 10/02/20 04:21 Seg Neutrophils % 72.2 % (42-78) 10/02/20 04:21 Sodium 138.8 mmol/L (137-145) 10/02/20 04:21 Potassium 4.2 mmol/L (3.6-5.0) 10/02/20 04:21 Chloride 109 mmol/L (98-107) H 10/02/20 04:21 Carbon Dioxide 24 mmol/L (22-30) 10/02/20 04:21 Anion Gap 6 (5-19) 10/02/20 04:21 BUN 14 mg/dL (7-20) 10/02/20 04:21 Creatinine 0.59 mg/dL (0.52-1.25) 10/02/20 04:21 Est GFR ( Amer) > 60 (>60) 10/02/20 04:21 Est GFR (MDRD) Non-Af > 60 (>60) 10/02/20 04:21 Glucose 92 mg/dL (75-110) 10/02/20 04:21 Calcium 9.3 mg/dL (8.4-10.2) 10/02/20 04:21 COVID-19 Source See comment 09/24/20 11:56 COVID-19 (STEPHANIE) Not Detected (Not Detect) 09/24/20 11:56 Impressions: KUB X-Ray 10/03/20 00:00 IMPRESSION: Status post right lower quadrant ostomy. Gas is seen within multiple loops of presumably large bowel without evidence of obstruction.
[2020-10-05] MEDS: HYDROCODONE/ACETAMINOPHEN 10-325 MG TABLET PO PRN ×2 (17:10→21:23)
[2020-10-05] MEDS: ATORVASTATIN CALCIUM 10 MG TABLET PO SCH (21:20)
[2020-10-05] MEDS: TEMAZEPAM 7.5 MG CAPSULE PO SCH (21:20)
[2020-10-05] MEDS: ROPINIROLE HCL 1 MG TABLET PO SCH (21:20)
[2020-10-05] MEDS: METHOCARBAMOL 500 MG TABLET PO SCH (21:20)
[2020-10-06] MEDS: KETOROLAC TROMETHAMINE INJ/PF 30 MG/1 ML SDV IV SCH ×2 (03:36→10:07)
[2020-10-06] MEDS: HYDROCODONE/ACETAMINOPHEN 10-325 MG TABLET PO PRN ×3 (10:05→22:45)
[2020-10-06] MEDS: CETIRIZINE 10 MG TABLET PO SCH (10:06)
[2020-10-06] MEDS: PANTOPRAZOLE SODIUM 20 MG TABLET.DR PO SCH ×2 (10:06→18:44)
[2020-10-06] MEDS: POTASSIUM CHLORIDE 10 MEQ TABLET.ER PO SCH (10:06)
[2020-10-06] MEDS: VENLAFAXINE HCL 75 MG CAP.SR.24H PO SCH (10:06)
[2020-10-06] MEDS: ASPIRIN 81 MG TABLET, CHEWABLE PO SCH (10:06)
[2020-10-06] MEDS: HYDROCHLOROTHIAZIDE 12.5 MG TABLET PO SCH (10:06)
[2020-10-06] MEDS: ENOXAPARIN SODIUM INJ 40 MG/0.4 ML DISP.SYRIN SUBCUT SCH (10:11)
[2020-10-06] MEDS: FENOFIBRATE NANOCRYSTALLIZED 145 MG TABLET PO SCH (10:12)
[2020-10-06] MEDS: HYDROCORTISONE 10 MG TABLET PO SCH (10:12)
[2020-10-06] MEDS: ROPINIROLE HCL 1 MG TABLET PO SCH (21:50)
[2020-10-06] MEDS: METHOCARBAMOL 500 MG TABLET PO SCH (21:50)
[2020-10-06] MEDS: TEMAZEPAM 7.5 MG CAPSULE PO SCH (21:50)
[2020-10-06] MEDS: ATORVASTATIN CALCIUM 10 MG TABLET PO SCH (21:50)
[2020-10-07] MEDS: HYDROCODONE/ACETAMINOPHEN 10-325 MG TABLET PO PRN ×2 (02:54→06:51)
--- NOTE | 2020-10-07 07:58 | Progress Note ---
Provider Note Provider Note: Pt was scheduled to go home yesterday, but she had a fever prior to discharge. She was observed overnight, and remained afebrile. She was then scheduled to be discharged today, however her pharmacy is not open and she cannot obtain her medications. Plan for discharge tomorrow.
--- NOTE | 2020-10-07 09:37 | RADIOLOGY REPORT (SQ) ---
EXAM DESCRIPTION: CHEST SINGLE VIEW IMAGES COMPLETED DATE/TIME: 10/07/2020 9:24 am REASON FOR STUDY: fever COMPARISON: PA and lateral views of the chest from 06/14/2020. EXAM PARAMETERS: NUMBER OF VIEWS: One view. TECHNIQUE: An AP view of the chest was obtained. RADIATION DOSE: NA LIMITATIONS: None. FINDINGS: LUNGS AND PLEURA: Patchy bibasilar opacities. There is no sizable pleural effusion or pne umothorax. MEDIASTINUM AND HILAR STRUCTURES: No mediastinal or hilar contour abnormality. HEART AND VASCULAR STRUCTURES: The cardiac silhouette and pulmonary vasculature are within normal urbina its. BONES: No acute findings. HARDWARE: ACDF. OTHER: No other finding. IMPRESSION: Patchy bibasilar opacities. Correlation with clinical findings to exclude a pneumonia i s recommended. TECHNICAL DOCUMENTATION: JOB ID: [id number] 2010 [employer]- All Rights Reserved Reading location - IP/workstation name: [email or web address]
[2020-10-07 09:40] LABS: ABSOLUTE BASOPHILS # (AUTO) 0.1 10^3/uL (0.0-0.2); ABSOLUTE EOSINOPHILS # (AUTO) 0.2 10^3/uL (0.0-0.6); ABSOLUTE LYMPHOCYTES (AUTO) 1.2 10^3/uL (0.5-4.7); ABSOLUTE NEUT (AUTO) 6.8 10^3/uL (1.7-8.2); BASOPHILS % (AUTO) 0.6 % (0-2); EOSINOPHILS % (AUTO) 2.2 % (0-6); HEMATOCRIT 31.4 % (36.0-47.0); HEMOGLOBIN 10.5 g/dL (12.0-15.5); LYMPHOCYTES % (AUTO) 13.2 % (13-45); MEAN CORPUSCULAR HGB CONC 33.4 g/dL (32.0-36.0); MEAN CORPUSCULAR VOLUME 81 fl (80-97); MONOCYTES % (AUTO) 10.9 % (3-13); PLATELET COUNT 336 10^3/uL (150-450); RED BLOOD COUNT 3.89 10^6/uL (3.72-5.28); RED CELL DISTRIBUTION WIDTH 16.5 % (11.5-14.0); SEGMENTED NEUTROPHILS % (AUTO) 73.1 % (42-78); TOTAL CELLS COUNTED % (AUTO) 100 %; WHITE BLOOD COUNT 9.3 10^3/uL (4.0-10.5)
[2020-10-07] MEDS: HYDROCHLOROTHIAZIDE 12.5 MG TABLET PO SCH (09:42)
[2020-10-07] MEDS: CETIRIZINE 10 MG TABLET PO SCH (09:42)
[2020-10-07] MEDS: FENOFIBRATE NANOCRYSTALLIZED 145 MG TABLET PO SCH (09:42)
[2020-10-07] MEDS: ENOXAPARIN SODIUM INJ 40 MG/0.4 ML DISP.SYRIN SUBCUT SCH (09:43)
[2020-10-07] MEDS: POTASSIUM CHLORIDE 10 MEQ TABLET.ER PO SCH (09:43)
[2020-10-07] MEDS: HYDROCORTISONE 10 MG TABLET PO SCH (09:43)
[2020-10-07] MEDS: VENLAFAXINE HCL 75 MG CAP.SR.24H PO SCH (09:43)
[2020-10-07] MEDS: ASPIRIN 81 MG TABLET, CHEWABLE PO SCH (09:43)
[2020-10-07] MEDS: PANTOPRAZOLE SODIUM 20 MG TABLET.DR PO SCH (09:43)
[2020-10-07 09:58] LABS: ANION GAP 10 (5-19); BLOOD UREA NITROGEN 13 mg/dL (7-20); CALCIUM 8.6 mg/dL (8.4-10.2); CARBON DIOXIDE 28 mmol/L (22-30); CHLORIDE 99 mmol/L (98-107); GLUCOSE 83 mg/dL (75-110); POTASSIUM 3.2 mmol/L (3.6-5.0)
[2020-10-07 10:37] VITALS: BP 123/76
== END 2020-10-07 10:59 | disposition home or self-care (01) | DRG 330 ==
LOC: INOR 10-01 07:01 → 4N 10-01 15:43
PROVIDERS: ADMIT Surgery; ATTEND Surgery
PROC: 0WUF0JZ Supplement Abdominal Wall with Synthetic Substitute, Open Approach (ICD-10-PCS; 2020-10-01)
PROC: 0DBB0ZZ Excision of Ileum, Open Approach (ICD-10-PCS; principal; 2020-10-01 09:30)
DX: Z43.2 Encounter for attention to ileostomy (principal); E27.1 Primary adrenocortical insufficiency; Z79.899 Other long term (current) drug therapy; Z79.82 Long term (current) use of aspirin; Z88.8 Allergy status to other drugs, medicaments and biological substances
CPT/HCPCS: 36415; 71045; 74018; 80048; 840; 84132; 85025; 87635; 93005; 93010; 94799; C1758; C1781; C9803; J0131; J0330; J0694; J1100; J1170; J1650; J1741; J1885; J2250; J2270; J2405; J2550; J2704; J2710; J2930; J3010; J3490; J7030; J7050; J7060

== ENCOUNTER → 2020-11-14 | Outpatient (CLI) | payer OTHER ==
--- NOTE | 2020-11-14 14:26 | RADIOLOGY REPORT (SQ) ---
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 Images reviewed with lung, soft tissue, and bone windows. Reconstructed coronal and sagittal MPR i mages reviewed. All images stored on PACS. All CT scanners at this facility use dose modulation, iterative reconstruction, and/or weight based d osing when appropriate to reduce radiation dose to as low as reasonably achievable (ALARA). [facility]: Dose Right [facility]: CareDose [facility]: Dose Right [facility]: Teradose 4D [facility]: [employer] RADIATION DOSE: CT Rad equipment meets quality standard of care and radiation dose reduction techniq ues were employed. CTDIvol: 6.9 mGy. DLP: 345 mGy-cm. mGy. LIMITATIONS: None. FINDINGS: LOWER CHEST: No significant findings. No nodules or infiltrates. NON-CONTRASTED LIVER, SPLEEN, ADRENALS: Evaluation limited by lack of IV contrast. No identified sign ificant masses. PANCREAS: No masses. No peripancreatic inflammatory changes. GALLBLADDER: No identified stones by CT criteria. No inflammatory changes to suggest cholecystitis. RIGHT KIDNEY AND URETER: No suspicious masses. Assessment limited by lack of IV contrast. No signif icant calcifications. No hydronephrosis or hydroureter. LEFT KIDNEY AND URETER: No suspicious masses. Assessment limited by lack of IV contrast. No signifi cant calcifications. No hydronephrosis or hydroureter. AORTA AND RETROPERITONEUM: No aneurysm. No retroperitoneal masses or adenopathy. BOWEL AND PERITONEAL CAVITY: Anastomosis sigmoid colon and small bowel anastomosis right lower quadra nt. There is a 10 mm gas bubble abutting the anterior right lower quadrant abdominal wall on image 5 [phone] which may be extraluminal. Close proximity to loop of relatively normal appearing small bowel. Th ere is inflammatory change in the adjacent subcutaneous tissues. No dilated loops. No ascites. APPENDIX: Surgically absent. PELVIS, BLADDER, AND ABDOMINAL WALL: Intact surgical mesh right lower quadrant. BONES: No significant findings. OTHER: No other significant finding. IMPRESSION: Small gas bubble anterior right lower quadrant adjacent to surgical mesh. This may be e xtraluminal. No significant organized gas fluid collection. TECHNICAL DOCUMENTATION: JOB ID: [id number] Quality ID # [id number]: Final reports with documentation of one or more dose reduction techniques (e.g., Au tomated exposure control, adjustment of the mA and/or kV according to patient size, use of iterative reconstruction technique) 2010 [employer]- All Rights Reserved Reading location - IP/workstation name: [email or web address]
== END ==
LOC: RAD 13:17
PROVIDERS: ATTEND Surgery
DX: K63.2 Fistula of intestine (principal)
CPT/HCPCS: 74176